=== PATIENT | male | born 1945 | race Caucasian/White ===

== ENCOUNTER 2018-11-18 09:30 | Inpatient (IN) | payer MEDICARE, OTHER ==
[2018-11-18 09:39] LABS: Glucose,Whole Blood 303 mg/dL (75-99)
[2018-11-18] MEDS ORDERED: SODIUM CHLORIDE 0.9% 1,000 ML IV ONE (10:17)
[2018-11-18] MEDS ORDERED: SODIUM CHLORIDE 0.9% 500 ML 500 ML IV ONE (10:17)
--- NOTE | 2018-11-18 10:31 | ED ---
General Adult HPI - General Chief complaint: Nausea/Vomiting/Diarrhea Stated complaint: HYPERGLYCEMIA, NAUSEA X 5 DAYS Time Seen by Provider: 11/18/18 09:40 Source: patient, RN notes reviewed Mode of arrival: wheelchair Limitations: no limitations - History of Present Illness Initial comments: This is a 73-year-old male who presents emergency department with past medical history significant for diabetes. Patient presents to the emergency department complaining of vomiting 5 days. Patient denies abdominal pain. Patient denies diarrhea. Patient denies any fever chills or cough. Patient denies headache. Patient denies numbness weakness. Patient denies any chest pain difficulty breathing or shortness of breath. Patient came in because he believes he is dehydrated. Patient is a poor historian. - Related Data Home Medications Medication Instructions Recorded Confirmed Insulin Glargine,Hum.rec.anlog 17 units SQ DAILY 11/18/18 11/18/18 [Toujeo Solostar] Insulin Glulisine [Apidra Solostar] 4 unit SQ AC-LUNCH 11/18/18 11/18/18 Insulin Glulisine [Apidra Solostar] 7 unit SQ AC-SUPPER 11/18/18 11/18/18 Insulin Glulisine [Apidra Solostar] See Protocol SQ AC-BRKFST 11/18/18 11/18/18 Allergies Allergy/AdvReac Type Severity Reaction Status Date / Time No Known Allergies Allergy Verified 11/18/18 09:51 Review of Systems ROS Statement: Those systems with pertinent positive or pertinent negative responses have been documented in the HPI. ROS Other: All systems not noted in ROS Statement are negative. Past Medical History Past Medical History: Diabetes Mellitus History of Any Multi-Drug Resistant Organisms: None Reported Past Surgical History: No Surgical Hx Reported, Cholecystectomy Additional Past Surgical History / Comment(s): hernia repair Past Psychological History: No Psychological Hx Reported Smoking Status: Never smoker Past Alcohol Use History: Rare Past Drug Use History: None Reported General Exam - General Exam Comments Initial Comments: GENERAL: Patient is well-developed and well-nourished. Patient is nontoxic and well- hydrated and is in mild distress ENT: Neck is soft and supple. No significant lymphadenopathy is noted. Oropharynx is clear. Dry mucous membranes. Neck has full range of motion without eliciting any pain. EYES: The sclera were anicteric and conjunctiva were pink and moist. Extraocular movements were intact and pupils were equal round and reactive to light. Eyelids were unremarkable. PULMONARY: Unlabored respirations. Good breath sounds bilaterally. No audible rales rhonchi or wheezing was noted. CARDIOVASCULAR: There is a regular rate and rhythm without any murmurs gallops or rubs. ABDOMEN: Soft and nontender with normal bowel sounds. No palpable organomegaly was noted. There is no palpable pulsatile mass. SKIN: Skin is clear with no lesions or rashes and otherwise unremarkable. NEUROLOGIC: Patient is alert and oriented x3. Cranial nerves II through XII are grossly intact. Motor and sensory are also intact. Normal speech, volume and content. Symmetrical smile. Cerebellar exam grossly intact. MUSCULOSKELETAL: Normal extremities with adequate strength and full range of motion. No lower extremity swelling or edema. No calf tenderness. LYMPHATICS: No significant lymphadenopathy is noted PSYCHIATRIC: Normal psychiatric evaluation. Limitations: no limitations Course Vital Signs 11/18/18 09:39 Temperature 98.4 F Pulse Rate 105 H Respiratory 18 Rate Blood Pressure 157/73 O2 Sat by Pulse 94 L Oximetry Medical Decision Making - Medical Decision Making I started the patient insulin drip. I talked with Dr. Vela he agreed to admit the patient admitted the patient I wr ote admitting orders. - Lab Data Result diagrams: 11/18/18 10:10 11/18/18 10:10 Lab Results 11/18/18 11/18/18 11/18/18 Range/Units 09:35 10:10 10:10 WBC 19.1 H (3.8-10.6) k/uL RBC 5.88 (4.30-5.90) m/uL Hgb 17.6 H (13.0-17.5) gm/dL Hct 53.0 (39.0-53.0) % MCV 90.2 (80.0-100.0) fL MCH 30.0 (25.0-35.0) pg MCHC 33.3 (31.0-37.0) g/dL RDW 13.0 (11.5-15.5) % Plt Count 263 (150-450) k/uL Neutrophils % 91 % Lymphocytes % 4 % Monocytes % 4 % Eosinophils % 0 % Basophils % 0 % Neutrophils # 17.5 H (1.3-7.7) k/uL Lymphocytes # 0.7 L (1.0-4.8) k/uL Monocytes # 0.8 (0-1.0) k/uL Eosinophils # 0.0 (0-0.7) k/uL Basophils # 0.0 (0-0.2) k/uL Sodium 148 H (137-145) mmol/L Potassium 4.6 (3.5-5.1) mmol/L Chloride 105 (98-107) mmol/L Carbon Dioxide 30 (22-30) mmol/L Anion Gap 13 mmol/L BUN 48 H (9-20) mg/dL Creatinine 1.15 (0.66-1.25) mg/dL Est GFR (CKD-EPI)AfAm 74 (>60 ml/min/1.73 sqM) Est GFR (CKD-EPI)NonAf 64 (>60 ml/min/1.73 sqM) Glucose 335 H (74-99) mg/dL POC Glucose (mg/dL) 303 H (75-99) mg/dL POC Glu Firearms Inspector ID Deisi Garza Calcium 10.4 H (8.4-10.2) mg/dL Total Bilirubin 1.2 (0.2-1.3) mg/dL AST 28 (17-59) U/L ALT 31 (21-72) U/L Alkaline Phosphatase 119 (38-126) U/L Total Protein 7.9 (6.3-8.2) g/dL Albumin 4.8 (3.5-5.0) g/dL Acetone, Qual Positive (Negative) Disposition Clinical Impression: DKA (diabetic ketoacidoses) Disposition: ADMITTED IP TO THIS HOSP Referrals: Floyd Armando MD [Primary Care Provider] - 1-2 days Time of Disposition: 12:09
--- NOTE | 2018-11-18 10:56 | XR ---
EXAMINATION TYPE: XR chest 2V DATE OF EXAM: 11/18/2018 COMPARISON: NONE HISTORY: Shortness of breath TECHNIQUE: Frontal and lateral views of the chest are obtained. FINDINGS: Scattered senescent parenchymal changes noted. Hyperinflation compatible with COPD. No evidence for infiltrate. No evidence for atelectasis. Heart size is stable. Mediastinal structures are stable and grossly unremarkable. No evidence for hilar prominence. Degenerative changes dorsal spine. IMPRESSION: 1. No evidence for acute pulmonary disease.
[2018-11-18 10:58] LABS: ALT 31 U/L (21-72); AST 28 U/L (17-59); African American GFR (CKD) 74 (>60 ml/min/1.73 sqM); Albumin 4.8 g/dL (3.5-5.0); Alkaline Phosphatase 119 U/L (38-126); Anion Gap 13 mmol/L; Blood Urea Nitrogen 48 mg/dL (9-20); Calcium 10.4 mg/dL (8.4-10.2); Carbon Dioxide 30 mmol/L (22-30); Chloride 105 mmol/L (98-107); Glucose 335 mg/dL (74-99); Potassium 4.6 mmol/L (3.5-5.1); Sodium 148 mmol/L (137-145); Total Bilirubin 1.2 mg/dL (0.2-1.3); Total Protein 7.9 g/dL (6.3-8.2)
[2018-11-18] MEDS ORDERED: ONDANSETRON 4 MG/2 ML VIAL IVP STA (11:02)
[2018-11-18 11:06] LABS: Basophils % (A) 0 %; Eosinophils % (A) 0 %; HGB 17.6 gm/dL (13.0-17.5); Lymphocytes # (A) 0.7 k/uL (1.0-4.8); Lymphocytes % (A) 4 %; MCHC 33.3 g/dL (31.0-37.0); MCV 90.2 fL (80.0-100.0); Mean Platelet Volume 7.4; Monocytes # (A) 0.8 k/uL (0-1.0); Monocytes % (A) 4 %; Neutrophils # (A) 17.5 k/uL (1.3-7.7); Neutrophils % (A) 91 %; Platelet Count 263 k/uL (150-450); RBC 5.88 m/uL (4.30-5.90); WBC 19.1 k/uL (3.8-10.6)
[2018-11-18 12:26] LABS: Glucose,Whole Blood 269 mg/dL (75-99)
[2018-11-18 12:33] LABS: Appearance,Urine Clear (Clear); Bilirubin,Urine Negative (Negative); Blood,Urine Negative (Negative); Color,Urine Yellow; Glucose,Urine (UA) 4+ (Negative); Ketones,Urine 1+ (Negative); Leukocyte Esterase,Urine Negative (Negative); Nitrite,Urine Negative (Negative); PH, Urine 5.5 (5.0-8.0); Protein,Urine Negative (Negative); Specific Gravity,Urine 1.017 (1.001-1.035); Urobilinogen,Urine <2.0 mg/dL (<2.0)
[2018-11-18] MEDS: SODIUM CHLORIDE 0.9% 1,000 ML IV SCH ×2 (12:59→19:29)
[2018-11-18] MEDS: INSULIN REGULAR 100 UNIT in SODIUM CHLORIDE 0.9% 100 ML IV SCH (12:59)
[2018-11-18 13:33] LABS: Glucose,Whole Blood 197 mg/dL (75-99)
[2018-11-18 14:09] LABS: Glucose,Whole Blood 168 mg/dL (75-99)
[2018-11-18] MEDS: D5-0.45% NACL WITH KCL 20MEQ/L 1,000 ML IV SCH ×2 (14:18→22:50)
[2018-11-18 15:10] LABS: Glucose,Whole Blood 135 mg/dL (75-99)
[2018-11-18 16:12] LABS: Glucose,Whole Blood 109 mg/dL (75-99)
[2018-11-18 16:22] LABS: African American GFR (CKD) >90 (>60 ml/min/1.73 sqM); Anion Gap 10 mmol/L; Blood Urea Nitrogen 38 mg/dL (9-20); Carbon Dioxide 31 mmol/L (22-30); Chloride 110 mmol/L (98-107); Glucose 115 mg/dL (74-99); Phosphorus 2.2 mg/dL (2.5-4.5); Potassium 4.2 mmol/L (3.5-5.1); Sodium 151 mmol/L (137-145)
[2018-11-18 16:43] LABS: Glucose,Whole Blood 96 mg/dL (75-99)
[2018-11-18] MEDS: ONDANSETRON 4 MG/2 ML VIAL IVP PRN (17:04)
[2018-11-18 18:01] LABS: Glucose,Whole Blood 116 mg/dL (75-99)
[2018-11-18] MEDS: METOCLOPRAMIDE 5 MG/ML 2 ML VIAL IVP PRN (18:31)
--- NOTE | 2018-11-18 19:20 | P.CNNES ---
History of Present Illness Consult date: 11/18/18 Requesting physician: Umu Vela Reason for Consult: AMS Chief complaint: "I have been vomiting" History of Present Illness: This is a 73 LH male h/o DMII who presents to the ER with 5 days of emesis. He was found to have elevated BS and sodium. Together with elevated BUN, he was diagnosed with dehydration. There was also mentioning of possible DKA as his initial BS was 335. He was started on an insulin gtt and IVF. He still feels nauseated, but does not have any active neuro c/o. Family believes he is not as alert as usual and requests a formal neurological consultation. Review of Systems 14-point ROS performed and as per HPI. Neurologically, patient denies decreased level or loss of consciousness, seizure, changes in vision, diplopia, amaurosis, changes in hearing, facial droop, ptosis, vertigo, hearing loss, tinnitus, dysarthria, dysphagia, aphasia, other focal numbness/weakness not mentioned above, tremors, bowel/bladder incontinence or ataxia. Past Medical History Past Medical History: Diabetes Mellitus, Osteoarthritis (OA) Additional Past Medical History / Comment(s): IDDM type II, arthritis in multiple joints, spinal stenosis, cervical and back pain, History of Any Multi-Drug Resistant Organisms: None Reported Past Surgical History: Cholecystectomy, Hernia Repair Additional Past Surgical History / Comment(s): R inguinal hernia repair, colonoscopies, bilateral cataract removals/lens implants. Past Anesthesia/Blood Transfusion Reactions: No Reported Reaction Smoking Status: Former smoker - Past Family History Father Family Medical History: Coronary Artery Disease (CAD) Additional Family Medical History / Comment(s): Father had 3 vessel CABG Mother Family Medical History: Dementia Additional Family Medical History / Comment(s): Mother had TB Brother(s) Additional Family Medical History / Comment(s): Brother had TB Medications and Allergies Home Medications Medication Instructions Recorded Confirmed Type Insulin Glargine,Hum.rec.anlog 17 units SQ DAILY 11/18/18 11/18/18 History [Toujeo Solostar] Insulin Glulisine [Apidra Solostar] 4 unit SQ AC-LUNCH 11/18/18 11/18/18 History Insulin Glulisine [Apidra Solostar] 7 unit SQ AC-SUPPER 11/18/18 11/18/18 History Insulin Glulisine [Apidra Solostar] See Protocol SQ AC-BRKFST 11/18/18 11/18/18 History Allergies Allergy/AdvReac Type Severity Reaction Status Date / Time No Known Allergies Allergy Verified 11/18/18 09:51 Physical Examination - Vital Signs Vital Signs: Vital Signs Temp Pulse Pulse Resp BP BP Pulse Ox 11/18/18 16:22 139/82 11/18/18 16:20 139/82 11/18/18 16:00 97.8 F 78 16 145/78 98 11/18/18 09:39 98.4 F 105 H 18 157/73 94 L Intake and Output 11/18/18 11/18/18 11/18/18 06:59 14:59 22:59 Intake Total 3.894 138.153 Balance 3.894 138.153 Intake: Intake, IV Titration 3.894 18.153 Amount Insulin Regular 100 unit 3.894 18.153 In Sodium Chloride 0.9% 100 ml @ 0.1 UNITS/KG/HR 6.872 mls/hr IV .[id number] [facility] Rx#:[id number] Oral 120 Other: Weight 68.039 kg Gen NAD Pleasant and cooperative HEENT NCAT Sclera without icterus O/P clear Neck Supple No carotid bruit Cor RRR no m/r/g Lungs CTAB Abd Soft NTND +BS Ext Warm to touch No edema Neuro MS A+Ox4 Normal fluency with mild semantic paraphasia Able to follow all 3-step command that crosses midline Knows 11/18/2018 President Margarita Immediate recall 3/3 Short-term recall 2/3 improves to 3/3 with prompting WORLD backwards 2/5 APPLE backwards 5/5 Cannot subtract Level of education 12th grade CN PERRL VFF no APD EOMI no nystagmus or DELFIN No facial asymmetry [place]'s symmetric Hearing intact to normal voice bilaterally Speech not dysarthric Equal elevation of palate Tongue midline Sym shrug and SCM bilaterally Motor Normal bulk/tone No pronator or tremors Strength 5/5 sym throughout Sens Intact to LT x4 No neglect Coord No dysmetria on FTN bilaterally DTRs 2+/4 sym throughout Toes downgoing bilaterally No clonus at achilles Gait Deferred Results - Laboratory Findings CBC and BMP: 11/18/18 10:10 11/18/18 15:55 Abnormal Lab Findings: Abnormal Labs 11/18/18 11/18/18 11/18/18 09:35 10:10 10:10 WBC 19.1 H Hgb 17.6 H Neutrophils # 17.5 H Lymphocytes # 0.7 L Sodium 148 H Chloride Carbon Dioxide BUN 48 H Glucose 335 H POC Glucose (mg/dL) 303 H Calcium 10.4 H Phosphorus Urine Glucose (UA) Urine Ketones 11/18/18 11/18/18 11/18/18 12:00 12:21 13:30 WBC Hgb Neutrophils # Lymphocytes # Sodium Chloride Carbon Dioxide BUN Glucose POC Glucose (mg/dL) 269 H 197 H Calcium Phosphorus Urine Glucose (UA) 4+ H Urine Ketones 1+ H 11/18/18 11/18/18 11/18/18 14:08 15:08 15:55 WBC Hgb Neutrophils # Lymphocytes # Sodium 151 H Chloride 110 H Carbon Dioxide 31 H BUN 38 H Glucose 115 H POC Glucose (mg/dL) 168 H 135 H Calcium Phosphorus 2.2 L Urine Glucose (UA) Urine Ketones 11/18/18 11/18/18 16:02 17:59 WBC Hgb Neutrophils # Lymphocytes # Sodium Chloride Carbon Dioxide BUN Glucose POC Glucose (mg/dL) 109 H 116 H Calcium Phosphorus Urine Glucose (UA) Urine Ketones Assessment and Plan Assessment: AMS in the setting hyperglycemia and hypernatremia/dehydration consistent with metabolic encephalopathy less likely new acute intracranial structural changes such as CVA Plan: -Medical management as you are doing with insulin gtt and rehydration. -MRI Brain wo valerie r/o CVA, though likely low-yield. 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 Will not order EEG or LP. -Send ionized calcium, magnesium, phosphorus, TSH and B12. -d/w patient and family. All questions answered. Thank you for this consultation. Please call with ?. Time with Patient: Greater than 30 (Time spent in direct patient care, greater than 50% of which was spent in [id number] counseling and coordination of care: 70 minutes.)
[2018-11-18 20:15] LABS: Glucose,Whole Blood 151 mg/dL (75-99)
[2018-11-18 20:29] LABS: Ionized Calcium 5.1 mg/dL (4.5-5.3)
[2018-11-18 20:33] LABS: Basophils # (A) 0.1 k/uL (0-0.2); Basophils % (A) 0 %; Eosinophils # (A) 0.1 k/uL (0-0.7); Eosinophils % (A) 0 %; HCT 47.9 % (39.0-53.0); HGB 15.6 gm/dL (13.0-17.5); Lymphocytes # (A) 1.2 k/uL (1.0-4.8); Lymphocytes % (A) 5 %; MCH 29.1 pg (25.0-35.0); MCHC 32.6 g/dL (31.0-37.0); MCV 89.3 fL (80.0-100.0); Mean Platelet Volume 8.3; Monocytes # (A) 1.3 k/uL (0-1.0); Monocytes % (A) 6 %; Neutrophils % (A) 87 %; Platelet Count 228 k/uL (150-450); RBC 5.36 m/uL (4.30-5.90); WBC 21.9 k/uL (3.8-10.6)
[2018-11-18 20:39] LABS: ALT 27 U/L (21-72); AST 30 U/L (17-59); African American GFR (CKD) >90 (>60 ml/min/1.73 sqM); Alkaline Phosphatase 109 U/L (38-126); Anion Gap 8 mmol/L; Blood Urea Nitrogen 32 mg/dL (9-20); Calcium 9.4 mg/dL (8.4-10.2); Carbon Dioxide 29 mmol/L (22-30); Chloride 110 mmol/L (98-107); Glucose 163 mg/dL (74-99); Magnesium 2.1 mg/dL (1.6-2.3); Phosphorus 2.6 mg/dL (2.5-4.5); Sodium 147 mmol/L (137-145); Total Bilirubin 1.7 mg/dL (0.2-1.3); Total Protein 6.8 g/dL (6.3-8.2)
[2018-11-18 21:11] LABS: Glucose,Whole Blood 141 mg/dL (75-99)
--- NOTE | 2018-11-18 21:35 | P.HPIM ---
History of Present Illness H&P Date: 11/18/18 Chief Complaint: Diabetic ketoacidosis, hypernatremia. This is a 73-year-old male one of Dr. Armando with a previous medical history significant for diabetes mellitus type 1 insulin requiring, history of diabetic polyneuropathy, psoriasis, history of spondylosis of the cervical spine, patient presented to the emergency department at [facility] today after 4 day history of increased abdominal pain associated with nausea and vomiting and not able to keep anything down, patient to the was found to have an elevated blood glucose level with hypernatremia and he was quite dehydrated he was started on insulin drip as well as IV fluid resuscitation was admitted to the hospital for evaluation, patient was seen in consultation by neurology for evaluation of mental status changes and encephalopathy that got better with IV hydration and IV insulin and he was recommended for the patient to go for MRI of the brain with and without gadolinium despite the low probability of CVA. Patient will have abdominal x-ray to rule out any ileus. Review of Systems Constitutional: Denies anorexia, Denies chronic headaches, Denies lethargy, Denies weakness Eyes: bilateral blurred vision, denies bulging eye, denies decreased vision Ears: bilateral: decreased hearing Ears, nose, mouth and throat: Denies dysphagia, Denies neck lump, Denies swelling in throat, Denies sore throat Cardiovascular: Denies chest pain, Denies decreased exercise tolerance, Denies dyspnea on exertion, Denies lightheadedness, Denies rapid heart beat, Denies shortness of breath, Denies syncope Respiratory: Denies congestion, Denies cough with sputum, Denies hemoptysis, Denies home oxygen, Denies sleep apnea, Denies snoring, Denies wheezing Gastrointestinal: Reports indigestion, Reports nausea, Reports vomiting, Denies abdominal pain, Denies bloating, Denies heartburn, Denies hematemesis, Denies hematochezia, Denies loss of appetite Genitourinary: Reports nocturia, Denies dysuria Musculoskeletal: Reports low back pain Musculoskeletal: absent: ankle pain, ankle stiffness, ankle swelling, elbow pain, elbow stiffness, elbow swelling, foot pain, foot stiffness, foot swelling, hand pain, hand stiffness, hand swelling, hip pain, hip stiffness, hip swelling, knee pain, knee stiffness, knee swelling, shoulder pain, shoulder stiffness, shoulder swelling, wrist pain, wrist stiffness, wrist swelling Integumentary: Reports rash (Psoriatic plaque in a scattered areas), Denies pruritus Neurological: Reports confusion Psychiatric: Denies anxiety, Denies depression Endocrine: Denies fatigue, Denies weight change Past Medical History Past Medical History: COPD, Diabetes Mellitus, Musculoskeletal Disorder, Osteoarthritis (OA), Prostate Disorder Additional Past Medical History / Comment(s): IDDM type II, arthritis in multiple joints, spinal stenosis, cervical and back pain, History of Any Multi-Drug Resistant Organisms: None Reported Past Surgical History: Cholecystectomy, Hernia Repair Additional Past Surgical History / Comment(s): R inguinal hernia repair, colonoscopies, bilateral cataract removals/lens implants. Past Anesthesia/Blood Transfusion Reactions: No Reported Reaction Smoking Status: Former smoker (Patient used to smoke about 2 pack every day smoked for many years and quit about 1999) Past Alcohol Use History: Occasional Past Drug Use History: None Reported - Past Family History Father Family Medical History: Coronary Artery Disease (CAD) (Father had 3 vessel coronary artery disease and he at age 67 with back surgery.) Additional Family Medical History / Comment(s): Father had 3 vessel CABG Mother Family Medical History: Dementia (Mother at age of 83 from tuberculosis.) Additional Family Medical History / Comment(s): Mother had TB Brother(s) Family Medical History: No Reported History (Patient has 2 brothers one of them with tuberculosis.) Additional Family Medical History / Comment(s): Brother had TB Sister(s) Family Medical History: No Reported History (Patient has 2 sisters no major medical problems.) Daughter(s) Family Medical History: No Reported History (Patient has 2 daughters no major medical problems.) Son(s) Family Medical History: No Reported History (Patient has 2 sons no major medical problems.) Medications and Allergies Home Medications Medication Instructions Recorded Confirmed Type Insulin Glargine,Hum.rec.anlog 17 units SQ DAILY 11/18/18 11/18/18 History [Toujosi Cruzostjay jay] Insulin Glulisine [Apidra Solostar] 4 unit SQ AC-LUNCH 11/18/18 11/18/18 History Insulin Glulisine [Apidra Solostar] 7 unit SQ AC-SUPPER 11/18/18 11/18/18 History Insulin Glulisine [Apidra Solostar] See Protocol SQ AC-BRKFST 11/18/18 11/18/18 History Allergies Allergy/AdvReac Type Severity Reaction Status Date / Time No Known Allergies Allergy Verified 11/18/18 09:51 Physical Exam Vitals: Vital Signs Temp Pulse Pulse Resp BP BP Pulse Ox 11/18/18 16:22 139/82 11/18/18 16:20 139/82 11/18/18 16:00 97.8 F 78 16 145/78 98 11/18/18 09:39 98.4 F 105 H 18 157/73 94 L Intake and Output 11/18/18 11/18/18 11/18/18 06:59 14:59 22:59 Intake Total 3.894 138.153 Balance 3.894 138.153 Intake: Intake, IV Titration 3.894 18.153 Amount Insulin Regular 100 unit 3.894 18.153 In Sodium Chloride 0.9% 100 ml @ 0.1 UNITS/KG/HR 6.872 mls/hr IV .[id number] [facility] Rx#:[id number] Oral 120 Other: Weight 68.039 kg - Constitutional General appearance: average body habitus, no acute distress - EENT Eyes: anicteric sclerae, EOMI, PERRLA, no ptosis, no scleral icterus, normal appearance ENT: NA/AT, normal oropharynx, no thrush Ears: bilateral: normal - Neck Neck: no lymphadenopathy, normal ROM, no rigidity, no stridor, no thyromegaly Carotids: bilateral: upstroke normal Thyroid: bilateral: normal size - Respiratory Respiratory: bilateral: diminished, negative: dullness, rales, rhonchi, wheezing, prolonged expiration, prolonged inspiration - Cardiovascular Rhythm: regular Heart sounds: normal: S1, S2 Abnormal Heart Sounds: no systolic murmur, no S3 Gallop, no S4 Gallop - Gastrointestinal General gastrointestinal: normal bowel sounds, soft, no splenomegaly, no tenderness, no umbilical hernia, no ventral hernia - Integumentary Integumentary: decreased turgor - Neurologic Neurologic: CNII-XII intact - Musculoskeletal Musculoskeletal: gait normal, generalized weakness, strength equal bilaterally - Psychiatric Psychiatric: A&O x's 3, appropriate affect, intact judgment & insight Results CBC & Chem 7: 11/18/18 19:45 11/18/18 19:45 Labs: Abnormal Lab Results - Last 24 Hours (Table) 11/18/18 11/18/18 11/18/18 Range/Units 09:35 10:10 10:10 WBC 19.1 H (3.8-10.6) k/uL Hgb 17.6 H (13.0-17.5) gm/dL Neutrophils # 17.5 H (1.3-7.7) k/uL Lymphocytes # 0.7 L (1.0-4.8) k/uL Sodium 148 H (137-145) mmol/L Chloride (98-107) mmol/L Carbon Dioxide (22-30) mmol/L BUN 48 H (9-20) mg/dL Glucose 335 H (74-99) mg/dL POC Glucose (mg/dL) 303 H (75-99) mg/dL Calcium 10.4 H (8.4-10.2) mg/dL Phosphorus (2.5-4.5) mg/dL Urine Glucose (UA) (Negative) Urine Ketones (Negative) 11/18/18 11/18/18 11/18/18 Range/Units 12:00 12:21 13:30 WBC (3.8-10.6) k/uL Hgb (13.0-17.5) gm/dL Neutrophils # (1.3-7.7) k/uL Lymphocytes # (1.0-4.8) k/uL Sodium (137-145) mmol/L Chloride (98-107) mmol/L Carbon Dioxide (22-30) mmol/L BUN (9-20) mg/dL Glucose (74-99) mg/dL POC Glucose (mg/dL) 269 H 197 H (75-99) mg/dL Calcium (8.4-10.2) mg/dL Phosphorus (2.5-4.5) mg/dL Urine Glucose (UA) 4+ H (Negative) Urine Ketones 1+ H (Negative) 11/18/18 11/18/18 11/18/18 Range/Units 14:08 15:08 15:55 WBC (3.8-10.6) k/uL Hgb (13.0-17.5) gm/dL Neutrophils # (1.3-7.7) k/uL Lymphocytes # (1.0-4.8) k/uL Sodium 151 H (137-145) mmol/L Chloride 110 H (98-107) mmol/L Carbon Dioxide 31 H (22-30) mmol/L BUN 38 H (9-20) mg/dL Glucose 115 H (74-99) mg/dL POC Glucose (mg/dL) 168 H 135 H (75-99) mg/dL Calcium (8.4-10.2) mg/dL Phosphorus 2.2 L (2.5-4.5) mg/dL Urine Glucose (UA) (Negative) Urine Ketones (Negative) 11/18/18 11/18/18 Range/Units 16:02 17:59 WBC (3.8-10.6) k/uL Hgb (13.0-17.5) gm/dL Neutrophils # (1.3-7.7) k/uL Lymphocytes # (1.0-4.8) k/uL Sodium (137-145) mmol/L Chloride (98-107) mmol/L Carbon Dioxide (22-30) mmol/L BUN (9-20) mg/dL Glucose (74-99) mg/dL POC Glucose (mg/dL) 109 H 116 H (75-99) mg/dL Calcium (8.4-10.2) mg/dL Phosphorus (2.5-4.5) mg/dL Urine Glucose (UA) (Negative) Urine Ketones (Negative) Thrombosis Risk Factor Assmnt - DVT/VTE Prophylaxis DVT/VTE Prophylaxis: Pharmacologic Prophylaxis ordered, Mechanical Prophylaxis ordered - Choose All That Apply Any of the Below Risk Factors Present?: Yes Each Factor Represents 1 point: Obesity (BMI >25) Other Risk Factors: Yes Each Risk Factor Represents 2 Points: Age 61-74 years Other congenital or acquired thrombophilia - If yes, enter type in comment: No Thrombosis Risk Factor Assessment Total Risk Factor Score: 3 Thrombosis Risk Factor Assessment Level: Moderate Risk Assessment and Plan Assessment: Assessment and plan: 1. Diabetic ketoacidosis. He shouldn't will continue IV fluid as well as IV insulin drip, monitor the patient blood glucose every hour, keep the patient on insulin drip overnight, continue patient Zofran 4 mg IV push every 6 hours as well as Reglan 5 mg IV push every 6 hours. Monitor CMP every 6 hours. 2. Intractable nausea and vomiting impart due to DKA however abdominal x-rays 2 views will be obtained as it was not done in the ER. 3. Leukocytosis of unclear etiology. Abdominal x-ray, repeat CBC the next 24 hours. Continue IV fluid resuscitation, continue insulin drip, monitor the patient very closely. 4. Diabetes mellitus type 2 insulin requiring. Continue on insulin drip overnight transition into [place] and Apidra with the patient is able to tolerate his diet. 5. Psoriasis. Stable. 6. 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 Stable. 7. Anion gap metabolic acidosis due to DKA. Continue IV fluid and IV insulin drip. Repeat CMP next 24 hours. 8. DVT prophylaxis. Heparin 5000 units subcutaneously every 8 hours. 9. GI prophylaxis. Protonix 40 mg push every 24 hours. 10. Admitted to inpatient. Estimate length of stay 2 midnights. 11. Patient is full code.
--- NOTE | 2018-11-18 22:05 | XR ---
EXAMINATION TYPE: XR abdomen 3V DATE OF EXAM: 11/18/2018 COMPARISON: NONE HISTORY: Vomiting, pain, nausea TECHNIQUE: Upright abdomen and supine abdomen and supine pelvis FINDINGS: Visualized lung bases and pleural spaces are negative. The bowel gas pattern is normal. No abnormal gas collections. No acute skeletal or soft tissue findings are evident. IMPRESSION: No acute radiographic process.
[2018-11-18 22:37] LABS: Glucose,Whole Blood 154 mg/dL (75-99)
[2018-11-18] MEDS: HEPARIN SODIUM,PORCINE 5,000 UNIT/ML 1 ML VIAL SQ SCH (22:50)
[2018-11-19 03:47] LABS: Glucose,Whole Blood 218 mg/dL (75-99)
[2018-11-19 03:47] LABS: Glucose,Whole Blood 183 mg/dL (75-99)
[2018-11-19 03:47] LABS: Glucose,Whole Blood 187 mg/dL (75-99)
[2018-11-19 03:47] LABS: Glucose,Whole Blood 226 mg/dL (75-99)
[2018-11-19 03:47] LABS: Glucose,Whole Blood 189 mg/dL (75-99)
[2018-11-19 04:13] LABS: Glucose,Whole Blood 244 mg/dL (75-99)
[2018-11-19 04:43] LABS: Basophils % (A) 0 %; Eosinophils # (A) 0.1 k/uL (0-0.7); Eosinophils % (A) 0 %; HCT 45.8 % (39.0-53.0); HGB 15.1 gm/dL (13.0-17.5); Lymphocytes # (A) 1.4 k/uL (1.0-4.8); Lymphocytes % (A) 7 %; MCH 29.7 pg (25.0-35.0); MCHC 32.9 g/dL (31.0-37.0); MCV 90.2 fL (80.0-100.0); Mean Platelet Volume 7.9; Monocytes # (A) 1.1 k/uL (0-1.0); Monocytes % (A) 6 %; Neutrophils # (A) 17.2 k/uL (1.3-7.7); Neutrophils % (A) 86 %; Platelet Count 228 k/uL (150-450); RBC 5.08 m/uL (4.30-5.90); WBC 20.1 k/uL (3.8-10.6)
[2018-11-19 04:45] LABS: African American GFR (CKD) >90 (>60 ml/min/1.73 sqM); Anion Gap 6 mmol/L; Blood Urea Nitrogen 27 mg/dL (9-20); Carbon Dioxide 29 mmol/L (22-30); Chloride 111 mmol/L (98-107); Glucose 205 mg/dL (74-99); Sodium 146 mmol/L (137-145)
[2018-11-19 05:16] LABS: Glucose,Whole Blood 238 mg/dL (75-99)
[2018-11-19 06:06] LABS: Glucose,Whole Blood 245 mg/dL (75-99)
[2018-11-19] MEDS: D5-0.45% NACL WITH KCL 20MEQ/L 1,000 ML IV SCH ×2 (06:30→10:54)
[2018-11-19] MEDS: INSULIN REGULAR 100 UNIT in SODIUM CHLORIDE 0.9% 100 ML IV SCH (06:31)
[2018-11-19 07:14] LABS: Glucose,Whole Blood 278 mg/dL (75-99)
[2018-11-19 08:00] LABS: Basophils % (A) 0 %; Eosinophils # (A) 0.1 k/uL (0-0.7); Eosinophils % (A) 0 %; HCT 48.5 % (39.0-53.0); HGB 16.1 gm/dL (13.0-17.5); Lymphocytes % (A) 7 %; MCH 30.1 pg (25.0-35.0); MCHC 33.2 g/dL (31.0-37.0); MCV 90.4 fL (80.0-100.0); Monocytes # (A) 0.9 k/uL (0-1.0); Monocytes % (A) 6 %; Neutrophils # (A) 13.3 k/uL (1.3-7.7); Neutrophils % (A) 86 %; Platelet Count 207 k/uL (150-450); RBC 5.36 m/uL (4.30-5.90); RDW 14.3 % (11.5-15.5); WBC 15.5 k/uL (3.8-10.6)
[2018-11-19 08:05] LABS: ALT 38 U/L (21-72); AST 35 U/L (17-59); African American GFR (CKD) >90 (>60 ml/min/1.73 sqM); Alkaline Phosphatase 108 U/L (38-126); Anion Gap 11 mmol/L; Blood Urea Nitrogen 19 mg/dL (9-20); Calcium 9.4 mg/dL (8.4-10.2); Carbon Dioxide 28 mmol/L (22-30); Chloride 106 mmol/L (98-107); Glucose 271 mg/dL (74-99); Potassium 3.8 mmol/L (3.5-5.1); Sodium 145 mmol/L (137-145); Total Bilirubin 1.7 mg/dL (0.2-1.3); Total Protein 6.8 g/dL (6.3-8.2)
[2018-11-19 08:05] LABS: Glucose,Whole Blood 242 mg/dL (75-99)
[2018-11-19 09:10] LABS: Glucose,Whole Blood 239 mg/dL (75-99)
[2018-11-19] MEDS ORDERED: INSULIN DETEMIR (LEVEMIR) 100 UNIT/ML SYR SQ SCH (09:30)
--- NOTE | 2018-11-19 09:32 | P.PN ---
Subjective Progress Note Date: 11/19/18 Principal diagnosis: AMS due to metabolic encephalopathy N/V and mentation have improved. No new neuro c/o. Objective - Vital Signs Vital signs: Vital Signs Temp 99.1 F 11/19/18 08:00 Pulse 78 11/19/18 08:00 Resp 16 11/19/18 08:00 BP 160/94 11/19/18 08:00 Pulse Ox 96 11/19/18 08:00 Intake & Output 11/18/18 11/19/18 11/19/18 18:59 06:59 18:59 Intake Total 142.047 755.841 240 Balance 142.047 755.841 240 Weight 68.039 kg 63.1 kg Intake: Intake, IV Titration 22.047 755.841 Amount D5-0.45% NaCl with KCl 750 20Meq/l 1,000 ml @ 150 mls/hr IV .[id number] [facility] Rx# :[id number] Insulin Regular 100 unit 22.047 5.841 In Sodium Chloride 0.9% 100 ml @ 0.1 UNITS/KG/HR 6.872 mls/hr IV .[id number] [facility] Rx#:[id number] Oral 120 240 Other: Voiding Method Urinal # Voids 1 - Exam Gen NAD Pleasant and cooperative MS A+Ox4 Normal speech CN II-XII grossly intact no nystagmus Motor Normal bulk/tone No tremors GARCIA x4 Sens Intact to LT x4 Coord Not tested DTRs tr throughout Gait Deferred - Labs CBC & Chem 7: 11/19/18 07:23 11/19/18 07:23 Labs: Abnormal Lab Results - Last 24 Hours (Table) 11/18/18 11/18/18 11/18/18 Range/Units 09:35 10:10 10:10 WBC 19.1 H (3.8-10.6) k/uL Hgb 17.6 H (13.0-17.5) gm/dL Neutrophils # 17.5 H (1.3-7.7) k/uL Lymphocytes # 0.7 L (1.0-4.8) k/uL Monocytes # (0-1.0) k/uL Sodium 148 H (137-145) mmol/L Chloride (98-107) mmol/L Carbon Dioxide (22-30) mmol/L BUN 48 H (9-20) mg/dL Glucose 335 H (74-99) mg/dL POC Glucose (mg/dL) 303 H (75-99) mg/dL Calcium 10.4 H (8.4-10.2) mg/dL Phosphorus (2.5-4.5) mg/dL Total Bilirubin (0.2-1.3) mg/dL Lipase (23-300) U/L Urine Glucose (UA) (Negative) Urine Ketones (Negative) 11/18/18 11/18/18 11/18/18 Range/Units 12:00 12:21 13:30 WBC (3.8-10.6) k/uL Hgb (13.0-17.5) gm/dL Neutrophils # (1.3-7.7) k/uL Lymphocytes # (1.0-4.8) k/uL Monocytes # (0-1.0) k/uL Sodium (137-145) mmol/L Chloride (98-107) mmol/L Carbon Dioxide (22-30) mmol/L BUN (9-20) mg/dL Glucose (74-99) mg/dL POC Glucose (mg/dL) 269 H 197 H (75-99) mg/dL Calcium (8.4-10.2) mg/dL Phosphorus (2.5-4.5) mg/dL Total Bilirubin (0.2-1.3) mg/dL Lipase (23-300) U/L Urine Glucose (UA) 4+ H (Negative) Urine Ketones 1+ H (Negative) 11/18/18 11/18/18 11/18/18 Range/Units 14:08 15:08 15:55 WBC (3.8-10.6) k/uL Hgb (13.0-17.5) gm/dL Neutrophils # (1.3-7.7) k/uL Lymphocytes # (1.0-4.8) k/uL Monocytes # (0-1.0) k/uL Sodium 151 H (137-145) mmol/L Chloride 110 H (98-107) mmol/L Carbon Dioxide 31 H (22-30) mmol/L BUN 38 H (9-20) mg/dL Glucose 115 H (74-99) mg/dL POC Glucose (mg/dL) 168 H 135 H (75-99) mg/dL Calcium (8.4-10.2) mg/dL Phosphorus 2.2 L (2.5-4.5) mg/dL Total Bilirubin (0.2-1.3) mg/dL Lipase (23-300) U/L Urine Glucose (UA) (Negative) Urine Ketones (Negative) 11/18/18 11/18/18 11/18/18 Range/Units 16:02 17:59 19:45 WBC (3.8-10.6) k/uL Hgb (13.0-17.5) gm/dL Neutrophils # (1.3-7.7) k/uL Lymphocytes # (1.0-4.8) k/uL Monocytes # (0-1.0) k/uL Sodium 147 H (137-145) mmol/L Chloride 110 H (98-107) mmol/L Carbon Dioxide (22-30) mmol/L BUN 32 H (9-20) mg/dL Glucose 163 H (74-99) mg/dL POC Glucose (mg/dL) 109 H 116 H (75-99) mg/dL Calcium (8.4-10.2) mg/dL Phosphorus (2.5-4.5) mg/dL Total Bilirubin 1.7 H (0.2-1.3) mg/dL Lipase (23-300) U/L Urine Glucose (UA) (Negative) Urine Ketones (Negative) 11/18/18 11/18/18 11/18/18 Range/Units 19:45 20:14 21:09 WBC 21.9 H (3.8-10.6) k/uL Hgb (13.0-17.5) gm/dL Neutrophils # 19.0 H (1.3-7.7) k/uL Lymphocytes # (1.0-4.8) k/uL Monocytes # 1.3 H (0-1.0) k/uL Sodium (137-145) mmol/L Chloride (98-107) mmol/L Carbon Dioxide (22-30) mmol/L BUN (9-20) mg/dL Glucose (74-99) mg/dL POC Glucose (mg/dL) 151 H 141 H (75-99) mg/dL Calcium (8.4-10.2) mg/dL Phosphorus (2.5-4.5) mg/dL Total Bilirubin (0.2-1.3) mg/dL Lipase (23-300) U/L Urine Glucose (UA) (Negative) Urine Ketones (Negative) 11/18/18 11/18/18 11/19/18 Range/Units 22:05 22:55 00:00 WBC 20.1 H (3.8-10.6) k/uL Hgb (13.0-17.5) gm/dL Neutrophils # 17.2 H (1.3-7.7) k/uL Lymphocytes # (1.0-4.8) k/uL Monocytes # 1.1 H (0-1.0) k/uL Sodium (137-145) mmol/L Chloride (98-107) mmol/L Carbon Dioxide (22-30) mmol/L BUN (9-20) mg/dL Glucose (74-99) mg/dL POC Glucose (mg/dL) 154 H 183 H (75-99) mg/dL Calcium (8.4-10.2) mg/dL Phosphorus (2.5-4.5) mg/dL Total Bilirubin (0.2-1.3) mg/dL Lipase (23-300) U/L Urine Glucose (UA) (Negative) Urine Ketones (Negative) 11/19/18 11/19/18 11/19/18 Range/Units 00:00 00:10 01:12 WBC (3.8-10.6) k/uL Hgb (13.0-17.5) gm/dL Neutrophils # (1.3-7.7) k/uL Lymphocytes # (1.0-4.8) k/uL Monocytes # (0-1.0) k/uL Sodium 146 H (137-145) mmol/L Chloride 111 H (98-107) mmol/L Carbon Dioxide (22-30) mmol/L BUN 27 H (9-20) mg/dL Glucose 205 H (74-99) mg/dL POC Glucose (mg/dL) 187 H 218 H (75-99) mg/dL Calcium (8.4-10.2) mg/dL Phosphorus (2.5-4.5) mg/dL Total Bilirubin (0.2-1.3) mg/dL Lipase (23-300) U/L Urine Glucose (UA) (Negative) Urine Ketones (Negative) 11/19/18 11/19/18 11/19/18 Range/Units 02:10 03:04 04:11 WBC (3.8-10.6) k/uL Hgb (13.0-17.5) gm/dL Neutrophils # (1.3-7.7) k/uL Lymphocytes # (1.0-4.8) k/uL Monocytes # (0-1.0) k/uL Sodium (137-145) mmol/L Chloride (98-107) mmol/L Carbon Dioxide (22-30) mmol/L BUN (9-20) mg/dL Glucose (74-99) mg/dL POC Glucose (mg/dL) 189 H 226 H 244 H (75-99) mg/dL Calcium (8.4-10.2) mg/dL Phosphorus (2.5-4.5) mg/dL Total Bilirubin (0.2-1.3) mg/dL Lipase (23-300) U/L Urine Glucose (UA) (Negative) Urine Ketones (Negative) 11/19/18 11/19/18 11/19/18 Range/Units 05:15 06:05 07:12 WBC (3.8-10.6) k/uL Hgb (13.0-17.5) gm/dL Neutrophils # (1.3-7.7) k/uL Lymphocytes # (1.0-4.8) k/uL Monocytes # (0-1.0) k/uL Sodium (137-145) mmol/L Chloride (98-107) mmol/L Carbon Dioxide (22-30) mmol/L BUN (9-20) mg/dL Glucose (74-99) mg/dL POC Glucose (mg/dL) 238 H 245 H 278 H (75-99) mg/dL Calcium (8.4-10.2) mg/dL Phosphorus (2.5-4.5) mg/dL Total Bilirubin (0.2-1.3) mg/dL Lipase (23-300) U/L Urine Glucose (UA) (Negative) Urine Ketones (Negative) 11/19/18 11/19/18 11/19/18 Range/Units 07:23 07:23 07:23 WBC 15.5 H (3.8-10.6) k/uL Hgb (13.0-17.5) gm/dL Neutrophils # 13.3 H (1.3-7.7) k/uL Lymphocytes # (1.0-4.8) k/uL Monocytes # (0-1.0) k/uL Sodium (137-145) mmol/L Chloride (98-107) mmol/L Carbon Dioxide (22-30) mmol/L BUN (9-20) mg/dL Glucose 271 H (74-99) mg/dL POC Glucose (mg/dL) (75-99) mg/dL Calcium (8.4-10.2) mg/dL Phosphorus (2.5-4.5) mg/dL Total Bilirubin 1.7 H (0.2-1.3) mg/dL Lipase 16 L (23-300) U/L Urine Glucose (UA) (Negative) Urine Ketones (Negative) 11/19/18 11/19/18 Range/Units 08:03 09:00 WBC (3.8-10.6) k/uL Hgb (13.0-17.5) gm/dL Neutrophils # (1.3-7.7) k/uL Lymphocytes # (1.0-4.8) k/uL Monocytes # (0-1.0) k/uL Sodium (137-145) mmol/L Chloride (98-107) mmol/L Carbon Dioxide (22-30) mmol/L BUN (9-20) mg/dL Glucose (74-99) mg/dL POC Glucose (mg/dL) 242 H 239 H (75-99) mg/dL Calcium (8.4-10.2) mg/dL Phosphorus (2.5-4.5) mg/dL Total Bilirubin (0.2-1.3) mg/dL Lipase (23-300) U/L Urine Glucose (UA) (Negative) Urine Ketones (Negative) Assessment and Plan Assessment: AMS in the setting hyperglycemia and hypernatremia/dehydration consistent with metabolic encephalopathy less likely new acute intracranial structural changes such as CVA Plan: -Medical management as you are doing with insulin gtt and rehydration. -MRI Brain wo valerie r/o CVA, though likely low-yield. Awaiting study. -No clinical S+S to suggest complex partial seizure or DOBBY LOOMS PEGGER infection. Will not order EEG or LP. -Correct all metabolic derangements. -d/w patient and family. All questions answered. Thank you again for this consultation. Please call with ?. Time with Patient: Less than 30 (Time spent in direct patient care, greater than 50% of which was spent in [id number] counseling and coordination of care: 25 minutes.)
[2018-11-19] MEDS: HEPARIN SODIUM,PORCINE 5,000 UNIT/ML 1 ML VIAL SQ SCH ×3 (09:48→23:17)
[2018-11-19] MEDS: PANTOPRAZOLE 40 MG/10 ML VIAL IVP SCH (09:48)
[2018-11-19 10:12] LABS: Glucose,Whole Blood 230 mg/dL (75-99)
[2018-11-19 11:25] LABS: Glucose,Whole Blood 241 mg/dL (75-99)
[2018-11-19] MEDS: METOCLOPRAMIDE 5 MG/ML 2 ML VIAL IVP PRN (12:03)
[2018-11-19] MEDS ORDERED: INSULIN ASPART (NovoLOG) 100 UNIT/ML VIAL SQ SCH ×2 (12:30→17:30)
[2018-11-19 12:33] LABS: Glucose,Whole Blood 209 mg/dL (75-99)
[2018-11-19] MEDS: SODIUM CHLORIDE 0.45% 1,000 ML IV SCH ×2 (13:19→23:17)
[2018-11-19 13:49] LABS: Glucose,Whole Blood 253 mg/dL (75-99)
--- NOTE | 2018-11-19 14:31 | P.PN ---
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 Armando with a previous medical history significant for diabetes mellitus type 1 insulin requiring, history of diabetic polyneuropathy, psoriasis, history of spondylosis of the cervical spine, patient presented to the emergency department at [facility] today after 4 day history of increased abdominal pain associated with nausea and vomiting and not able to keep anything down, patient to the was found to have an elevated blood glucose level with hypernatremia and he was quite dehydrated he was started on insulin drip as well as IV fluid resuscitation was admitted to the hospital for evaluation, patient was seen in consultation by neurology for e valuation of mental status changes and encephalopathy that got better with IV hydration and IV insulin and he was recommended for the patient to go for MRI of the brain with and without gadolinium despite the low probability of CVA. Patient will have abdominal x-ray to rule out any ileus. 11/19: Patient is not able to eat anything and he continues to have significant nausea and vomiting with even ice chips, I spoke with his daughter at the bedside and she stated that he had lost quite a bit of weight and he has been having some issues with dysphagia as well he denies any heartburn, he denies any blood in the stool or black stool, abdominal x-ray did not show any evidence of acute abnormalities his abdomen is quite soft nonsurgical, we'll consult GI for possible EGD and increased Reglan 10 mg IV push every 6 hours [id number], patient also may need to have a gastric emptying study as well, if the EGD is negative patient will go for computed tomography scan of the abdomen and pelvis with contrast tomorrow morning. Review of Systems Constitutional: Denies anorexia, Denies chronic headaches, Denies lethargy, Denies weakness Eyes: bilateral blurred vision, denies bulging eye, denies decreased vision Ears: bilateral: decreased hearing Ears, nose, mouth and throat: Denies dysphagia, Denies neck lump, Denies swelling in throat, Denies sore throat Cardiovascular: Denies chest pain, Denies decreased exercise tolerance, Denies dyspnea on exertion, Denies lightheadedness, Denies rapid heart beat, Denies shortness of breath, Denies syncope Respiratory: Denies congestion, Denies cough with sputum, Denies hemoptysis, Denies home oxygen, Denies sleep apnea, Denies snoring, Denies wheezing Gastrointestinal: Reports indigestion, Reports nausea, Reports vomiting, Denies abdominal pain, Denies bloating, Denies heartburn, Denies hematemesis, Denies hematochezia, Denies loss of appetite Genitourinary: Reports nocturia, Denies dysuria Musculoskeletal: Reports low back pain Musculoskeletal: absent: ankle pain, ankle stiffness, ankle swelling, elbow pain, elbow stiffness, elbow swelling, foot pain, foot stiffness, foot swelling, hand pain, hand stiffness, hand swelling, hip pain, hip stiffness, hip swelling, knee pain, knee stiffness, knee swelling, shoulder pain, shoulder stiffness, shoulder swelling, wrist pain, wrist stiffness, wrist swelling Integumentary: Reports rash (Psoriatic plaque in a scattered areas), Denies pruritus Neurological: Reports confusion Psychiatric: Denies anxiety, Denies depression Endocrine: Denies fatigue, Denies weight change Objective - Vital Signs Vital signs: Vital Signs Temp 99.1 F 11/19/18 08:00 Pulse 78 11/19/18 08:00 Resp 16 11/19/18 08:00 BP 160/94 11/19/18 08:00 Pulse Ox 96 11/19/18 08:00 Intake & Output 11/18/18 11/19/18 11/19/18 18:59 06:59 18:59 Intake Total 142.047 755.841 240 Balance 142.047 755.841 240 Weight 68.039 kg 63.1 kg Intake: Intake, IV Titration 22.047 755.841 Amount D5-0.45% NaCl with KCl 750 20Meq/l 1,000 ml @ 150 mls/hr IV .Q6H40M [facility] Rx# :[id number] Insulin Regular 100 unit 22.047 5.841 In Sodium Chloride 0.9% 100 ml @ 0.1 UNITS/KG/HR 6.872 mls/hr IV .[id number] YAO Rx#:[id number] Oral 120 240 Other: Voiding Method Urinal # Voids 1 - Exam - Constitutional General appearance: average body habitus, no acute distress - EENT Eyes: anicteric sclerae, EOMI, PERRLA, no ptosis, no scleral icterus, normal appearance ENT: NA/AT, normal oropharynx, no thrush Ears: bilateral: normal - Neck Neck: no lymphadenopathy, normal ROM, no rigidity, no stridor, no thyromegaly Carotids: bilateral: upstroke normal Thyroid: bilateral: normal size - Respiratory Respiratory: bilateral: diminished, negative: dullness, rales, rhonchi, wheezing, prolonged expiration, prolonged inspiration - Cardiovascular Rhythm: regular Heart sounds: normal: S1, S2 Abnormal Heart Sounds: no systolic murmur, no S3 Gallop, no S4 Gallop - Gastrointestinal General gastrointestinal: normal bowel sounds, soft, no splenomegaly, no tenderness, no umbilical hernia, no ventral hernia - Integumentary Integumentary: decreased turgor - Neurologic Neurologic: CNII-XII intact - Musculoskeletal Musculoskeletal: gait normal, generalized weakness, strength equal bilaterally - Psychiatric Psychiatric: A&O x's 3, appropriate affect, intact judgment & insight - Labs CBC & Chem 7: 11/21/18 10:28 11/21/18 10:28 Labs: Abnormal Lab Results - Last 24 Hours (Table) 11/18/18 11/18/18 11/18/18 Range/Units 12:00 12:21 13:30 WBC (3.8-10.6) k/uL Neutrophils # (1.3-7.7) k/uL Monocytes # (0-1.0) k/uL Sodium (137-145) mmol/L Chloride (98-107) mmol/L Carbon Dioxide (22-30) mmol/L BUN (9-20) mg/dL Glucose (74-99) mg/dL POC Glucose (mg/dL) 269 H 197 H (75-99) mg/dL Phosphorus (2.5-4.5) mg/dL Total Bilirubin (0.2-1.3) mg/dL Lipase (23-300) U/L Urine Glucose (UA) 4+ H (Negative) Urine Ketones 1+ H (Negative) 11/18/18 11/18/18 11/18/18 Range/Units 14:08 15:08 15:55 WBC (3.8-10.6) k/uL Neutrophils # (1.3-7.7) k/uL Monocytes # (0-1.0) k/uL Sodium 151 H (137-145) mmol/L Chloride 110 H (98-107) mmol/L Carbon Dioxide 31 H (22-30) mmol/L BUN 38 H (9-20) mg/dL Glucose 115 H (74-99) mg/dL POC Glucose (mg/dL) 168 H 135 H (75-99) mg/dL Phosphorus 2.2 L (2.5-4.5) mg/dL Total Bilirubin (0.2-1.3) mg/dL Lipase (23-300) U/L Urine Glucose (UA) (Negative) Urine Ketones (Negative) 11/18/18 11/18/18 11/18/18 Range/Units 16:02 17:59 19:45 WBC (3.8-10.6) k/uL Neutrophils # (1.3-7.7) k/uL Monocytes # (0-1.0) k/uL Sodium 147 H (137-145) mmol/L Chloride 110 H (98-107) mmol/L Carbon Dioxide (22-30) mmol/L BUN 32 H (9-20) mg/dL Glucose 163 H (74-99) mg/dL POC Glucose (mg/dL) 109 H 116 H (75-99) mg/dL Phosphorus (2.5-4.5) mg/dL Total Bilirubin 1.7 H (0.2-1.3) mg/dL Lipase (23-300) U/L Urine Glucose (UA) (Negative) Urine Ketones (Negative) 11/18/18 11/18/18 11/18/18 Range/Units 19:45 20:14 21:09 WBC 21.9 H (3.8-10.6) k/uL Neutrophils # 19.0 H (1.3-7.7) k/uL Monocytes # 1.3 H (0-1.0) k/uL Sodium (137-145) mmol/L Chloride (98-107) mmol/L Carbon Dioxide (22-30) mmol/L BUN (9-20) mg/dL Glucose (74-99) mg/dL POC Glucose (mg/dL) 151 H 141 H (75-99) mg/dL Phosphorus (2.5-4.5) mg/dL Total Bilirubin (0.2-1.3) mg/dL Lipase (23-300) U/L Urine Glucose (UA) (Negative) Urine Ketones (Negative) 11/18/18 11/18/18 11/19/18 Range/Units 22:05 22:55 00:00 WBC 20.1 H (3.8-10.6) k/uL Neutrophils # 17.2 H (1.3-7.7) k/uL Monocytes # 1.1 H (0-1.0) k/uL Sodium (137-145) mmol/L Chloride (98-107) mmol/L Carbon Dioxide (22-30) mmol/L BUN (9-20) mg/dL Glucose (74-99) mg/dL POC Glucose (mg/dL) 154 H 183 H (75-99) mg/dL Phosphorus (2.5-4.5) mg/dL Total Bilirubin (0.2-1.3) mg/dL Lipase (23-300) U/L Urine Glucose (UA) (Negative) Urine Ketones (Negative) 11/19/18 11/19/18 11/19/18 Range/Units 00:00 00:10 01:12 WBC (3.8-10.6) k/uL Neutrophils # (1.3-7.7) k/uL Monocytes # (0-1.0) k/uL Sodium 146 H (137-145) mmol/L Chloride 111 H (98-107) mmol/L Carbon Dioxide (22-30) mmol/L BUN 27 H (9-20) mg/dL Glucose 205 H (74-99) mg/dL POC Glucose (mg/dL) 187 H 218 H (75-99) mg/dL Phosphorus (2.5-4.5) mg/dL Total Bilirubin (0.2-1.3) mg/dL Lipase (23-300) U/L Urine Glucose (UA) (Negative) Urine Ketones (Negative) 11/19/18 11/19/18 11/19/18 Range/Units 02:10 03:04 04:11 WBC (3.8-10.6) k/uL Neutrophils # (1.3-7.7) k/uL Monocytes # (0-1.0) k/uL Sodium (137-145) mmol/L Chloride (98-107) mmol/L Carbon Dioxide (22-30) mmol/L BUN (9-20) mg/dL Glucose (74-99) mg/dL POC Glucose (mg/dL) 189 H 226 H 244 H (75-99) mg/dL Phosphorus (2.5-4.5) mg/dL Total Bilirubin (0.2-1.3) mg/dL Lipase (23-300) U/L Urine Glucose (UA) (Negative) Urine Ketones (Negative) 11/19/18 11/19/18 11/19/18 Range/Units 05:15 06:05 07:12 WBC (3.8-10.6) k/uL Neutrophils # (1.3-7.7) k/uL Monocytes # (0-1.0) k/uL Sodium (137-145) mmol/L Chloride (98-107) mmol/L Carbon Dioxide (22-30) mmol/L BUN (9-20) mg/dL Glucose (74-99) mg/dL POC Glucose (mg/dL) 238 H 245 H 278 H (75-99) mg/dL Phosphorus (2.5-4.5) mg/dL Total Bilirubin (0.2-1.3) mg/dL Lipase (23-300) U/L Urine Glucose (UA) (Negative) Urine Ketones (Negative) 11/19/18 11/19/18 11/19/18 Range/Units 07:23 07:23 07:23 WBC 15.5 H (3.8-10.6) k/uL Neutrophils # 13.3 H (1.3-7.7) k/uL Monocytes # (0-1.0) k/uL Sodium (137-145) mmol/L Chloride (98-107) mmol/L Carbon Dioxide (22-30) mmol/L BUN (9-20) mg/dL Glucose 271 H (74-99) mg/dL POC Glucose (mg/dL) (75-99) mg/dL Phosphorus (2.5-4.5) mg/dL Total Bilirubin 1.7 H (0.2-1.3) mg/dL Lipase 16 L (23-300) U/L Urine Glucose (UA) (Negative) Urine Ketones (Negative) 11/19/18 11/19/18 11/19/18 Range/Units 08:03 09:00 10:11 WBC (3.8-10.6) k/uL Neutrophils # (1.3-7.7) k/uL Monocytes # (0-1.0) k/uL Sodium (137-145) mmol/L Chloride (98-107) mmol/L Carbon Dioxide (22-30) mmol/L BUN (9-20) mg/dL Glucose (74-99) mg/dL POC Glucose (mg/dL) 242 H 239 H 230 H (75-99) mg/dL Phosphorus (2.5-4.5) mg/dL Total Bilirubin (0.2-1.3) mg/dL Lipase (23-300) U/L Urine Glucose (UA) (Negative) Urine Ketones (Negative) Assessment and Plan Assessment: Assessment and plan: 1. Diabetic ketoacidosis. was switched from insulin drip and started on his insulin , advance diet as tolerated. 2. Intractable nausea and vomiting in part due to diabetic acidosis however his anion gap has closed and the patient continued to have some issues and talking to the patient and his family he seems to be having a problem for quite sometimes with significant weight loss we will consult GI for an EGD, increase Reglan to 10 mg IV push every 6 hours and keep the patient on clear liquid diets only. 3. Leukocytosis likely related to dehydration. Still elevated. 4. Diabetes mellitus type 2 insulin requiring. Continue on insulin drip overnight transition into [place] and Apidra with the patient is able to tolerate his diet. 5. Psoriasis. Stable. 6. 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 Stable. 7. Anion gap metabolic acidosis due to DKA. Continue IV fluid and IV insulin drip. Repeat CMP next 24 hours. 8. DVT prophylaxis. Heparin 5000 units subcutaneously every 8 hours. 9. GI prophylaxis. Protonix 40 mg push every 24 hours. 10. If EGD is negative computed tomography scan of the abdomen and pelvis with contrast.
[2018-11-19 16:34] LABS: Glucose,Whole Blood 107 mg/dL (75-99)
[2018-11-19] MEDS: METOCLOPRAMIDE 5 MG/ML 2 ML VIAL IVP SCH ×2 (17:42→23:17)
[2018-11-19 20:23] LABS: Glucose,Whole Blood 62 mg/dL (75-99)
[2018-11-19 20:38] LABS: Glucose,Whole Blood 55 mg/dL (75-99)
[2018-11-19] MEDS ORDERED: GLUCAGON 1 MG/ML VIAL ONE (20:40)
[2018-11-19 21:03] LABS: Glucose,Whole Blood 77 mg/dL (75-99)
[2018-11-19 21:29] LABS: Glucose,Whole Blood 123 mg/dL (75-99)
[2018-11-20] MEDS: ONDANSETRON 4 MG/2 ML VIAL IVP PRN (00:37)
[2018-11-20 03:03] LABS: Glucose,Whole Blood 57 mg/dL (75-99)
[2018-11-20] MEDS ORDERED: GLUCAGON 1 MG/ML VIAL ONE (03:24)
[2018-11-20 03:33] LABS: Glucose,Whole Blood 61 mg/dL (75-99)
[2018-11-20 03:56] LABS: Glucose,Whole Blood 78 mg/dL (75-99)
[2018-11-20 04:16] LABS: Glucose,Whole Blood 65 mg/dL (75-99)
[2018-11-20 04:47] LABS: Glucose,Whole Blood 70 mg/dL (75-99)
[2018-11-20] MEDS: METOCLOPRAMIDE 5 MG/ML 2 ML VIAL IVP SCH ×3 (05:10→18:01)
[2018-11-20] MEDS ORDERED: DEXTROSE 5%-0.45% NACL 1,000 ML IV SCH (05:45)
[2018-11-20 06:10] LABS: Glucose,Whole Blood 111 mg/dL (75-99)
[2018-11-20 06:56] LABS: Basophils % (A) 0 %; Eosinophils # (A) 0.1 k/uL (0-0.7); Eosinophils % (A) 1 %; HCT 46.4 % (39.0-53.0); HGB 15.1 gm/dL (13.0-17.5); Lymphocytes # (A) 1.2 k/uL (1.0-4.8); Lymphocytes % (A) 11 %; MCH 29.4 pg (25.0-35.0); MCHC 32.6 g/dL (31.0-37.0); MCV 90.1 fL (80.0-100.0); Mean Platelet Volume 7.4; Monocytes # (A) 0.7 k/uL (0-1.0); Monocytes % (A) 6 %; Neutrophils # (A) 8.9 k/uL (1.3-7.7); Neutrophils % (A) 81 %; Platelet Count 210 k/uL (150-450); RBC 5.15 m/uL (4.30-5.90); RDW 12.9 % (11.5-15.5)
[2018-11-20 07:05] LABS: ALT 61 U/L (21-72); AST 50 U/L (17-59); African American GFR (CKD) >90 (>60 ml/min/1.73 sqM); Albumin 3.6 g/dL (3.5-5.0); Alkaline Phosphatase 89 U/L (38-126); Anion Gap 8 mmol/L; Blood Urea Nitrogen 17 mg/dL (9-20); Carbon Dioxide 30 mmol/L (22-30); Chloride 105 mmol/L (98-107); Glucose 119 mg/dL (74-99); Potassium 3.4 mmol/L (3.5-5.1); Sodium 143 mmol/L (137-145); Total Bilirubin 1.5 mg/dL (0.2-1.3); Total Protein 6.2 g/dL (6.3-8.2)
[2018-11-20] MEDS: HEPARIN SODIUM,PORCINE 5,000 UNIT/ML 1 ML VIAL SQ SCH ×2 (08:36→16:42)
[2018-11-20] MEDS: PANTOPRAZOLE 40 MG/10 ML VIAL IVP SCH (08:36)
--- NOTE | 2018-11-20 09:58 | MR ---
MRI brain without contrast HISTORY: Altered mental status Multiplanar multisequence imaging through the brain. No comparisons There is no restricted diffusion. No hemorrhage or hydrocephalus. Normal vascular flow voids present. Cortical atrophy is likely age-related. Cerebellopontine angles, corpus callosum, pituitary, cervica l medullary junction are within normal limits. Ventricular confluent and scattered hyperintensities a re present on inversion recovery T2-weighted sequences, approximately 3 lesions present. Orbits show symmetric appearance. There is mild inflammatory change present within the ethmoid air cells. IMPRESSION: Age-related atrophy and probable chronic small vessel ischemic change. No evident subacut e ischemia.
--- NOTE | 2018-11-20 10:25 | P.CONS ---
History of Present Illness - Reason for Consult Consult date: 11/20/18 nausea vomiting Requesting physician: Umu Vela - Chief Complaint nausea vomiting - History of Present Illness 73-year-old gentleman with a long-standing history of diabetes mellitus 1979, cholecystectomy, abdominal hernia repair, chronic back pain admitted with diabetic ketoacidosis, intractable nausea vomiting mild upper abdominal discomfort mental status changes without fever chills hematemesis hematochezia melena. No history of EGD. Colonoscopy 10 years ago. Patient states he intermittently has daily episodes of intractable nausea vomiting some days are better than others. Vehemently denies gross hematemesis on a daily or melena. Abdominal discomfort in the upper abdomen centered mostly around vomiting otherwise when there is no nausea vomiting is not experiencing abdominal pain. Patient reports difficulty controlling his blood sugars lately. Admission glucose 303 presently 111. Admission white count 19.1 presently 11. He will and 17.6 presently 15.1. Acetone positive. Sodium 148. Potassium 4.6. BUN 40. Creatinine 1.1. LFTs within normal limits. Lipase 16. Abdominal x-rays no acute process. Evaluated by neurology MRI brain age-related atrophy probable chronic small vessel ischemic change. No evidence of subacute ischemia. Patient's mental status is back to baseline he is alert and oriented 3. Denies NSAID or excessive aspirin usage. No alcohol or tobacco. No history of peptic ulcer disease gastric or bowel surgeries. Occasional Pepto-Bismol prior to admission no home GI prophylaxis medications. Review of Systems Constitutional: Denies fever, chills, sweats, weight gain, or loss. Mental status changes. HEENT: Negative for migraines, blurred vision or loss, earaches, drainage, tinnitus, oral mucosal lesions, dysphagia, or odynophagia. Cardiac: Negative for chest pain, arrhythmias, or palpitation. Respiratory: Negative for shortness of breath, hemoptysis, cough, or sputum production. Gastrointestinal: See HPI for pertinent findings. Genitourinary: Negative for hematuria, urgency, frequency, polyuria, dysuria, or penile discharge. Musculoskeletal: Negative for muscle aches, swelling, arthritis, and arthralgias. Neurologic: Negative for stroke or TIA. Endocrine: Negative for thyroid problems. Skin: Negative for rash or itching. Psychiatric: Negative history for depression and anxiety Past Medical History Past Medical History: COPD, Diabetes Mellitus, Musculoskeletal Disorder, Osteoarthritis (OA), Prostate Disorder Additional Past Medical History / Comment(s): IDDM type II, arthritis in multiple joints, spinal stenosis, cervical and back pain, History of Any Multi-Drug Resistant Organisms: None Reported Past Surgical History: Cholecystectomy, Hernia Repair Additional Past Surgical History / Comment(s): R inguinal hernia repair, colonoscopies, bilateral cataract removals/lens implants. Past Anesthesia/Blood Transfusion Reactions: No Reported Reaction Smoking Status: Former smoker (Patient used to smoke about 2 pack every day smoked for many years and quit about 1999) Past Alcohol Use History: Occasional Past Drug Use History: None Reported - Past Family History Father Family Medical History: Coronary Artery Disease (CAD) (Father had 3 vessel coronary artery disease and he at age 67 with back surgery.) Additional Family Medical History / Comment(s): Father had 3 vessel CABG Mother Family Medical History: Dementia (Mother at age of 83 from tuberculosis.) Additional Family Medical History / Comment(s): Mother had TB Brother(s) Family Medical History: No Reported History (Patient has 2 brothers one of them with tuberculosis.) Additional Family Medical History / Comment(s): Brother had TB Sister(s) Family Medical History: No Reported History (Patient has 2 sisters no major medical problems.) Daughter(s) Family Medical History: No Reported History (Patient has 2 daughters no major medical problems.) Son(s) Family Medical History: No Reported History (Patient has 2 sons no major medical problems.) Medications and Allergies Home Medications Medication Instructions Recorded Confirmed Type Insulin Glargine,Hum.rec.anlog 17 units SQ DAILY 11/18/18 11/18/18 History [Toujeo Solostar] Insulin Glulisine [Apidra Solostar] 4 unit SQ AC-LUNCH 11/18/18 11/18/18 History Insulin Glulisine [Apidra Solostar] 7 unit SQ AC-SUPPER 11/18/18 11/18/18 History Insulin Glulisine [Apidra Solostar] See Protocol SQ AC-BRKFST 11/18/18 11/18/18 History Allergies Allergy/AdvReac Type Severity Reaction Status Date / Time No Known Allergies Allergy Verified 11/18/18 09:51 Physical Exam Vitals: Vital Signs Temp Pulse Resp BP Pulse Ox 11/20/18 04:00 97 F L 76 16 128/62 95 11/19/18 23:46 98 F 82 16 124/74 96 11/19/18 20:00 98 F 88 16 168/80 98 11/19/18 16:00 98.3 F 83 17 165/88 11/19/18 12:00 87 18 146/66 97 Intake and Output 11/19/18 11/20/18 11/20/18 22:59 06:59 14:59 Intake Total 444 100 240 Output Total 600 400 Balance -156 100 -160 Intake: Oral 444 100 240 Output: Urine 600 400 Other: Weight 64.2 kg General appearance: The patient is alert, oriented, in no acute distress. HET: Head is normocephalic and atraumatic. Pupils are equal and reactive. Oropharynx is clear without lesions. Neck: Supple without lymphadenopathy. Trachea midline. Heart: S1 S2. Regular rate and rhythm. Lungs: No crackles or wheezes are heard. Abdomen: Soft, nontender, nondistended with bowel sounds. No peritoneal signs. No palpable organomegaly or masses. Extremities: Normal skin color and turgor. No cyanosis, rash, ulceration, club sulma, or edema. Radial and pedal pulses are 2/4 bilaterally. Neurological: No focal deficits. Strength and sensation are grossly intact. Results CBC & Chem 7: 11/20/18 06:12 11/20/18 06:12 Labs: Abnormal Lab Results - Last 24 Hours (Table) 11/19/18 11/19/18 11/19/18 Range/Units 07:23 11:21 12:32 WBC (3.8-10.6) k/uL Neutrophils # (1.3-7.7) k/uL Potassium (3.5-5.1) mmol/L Glucose (74-99) mg/dL POC Glucose (mg/dL) 241 H 209 H (75-99) mg/dL Total Bilirubin (0.2-1.3) mg/dL Total Protein (6.3-8.2) g/dL Vitamin B12 1012.0 H (200.0-944.0) pg/mL 11/19/18 11/19/18 11/19/18 Range/Units 13:37 16:30 20:21 WBC (3.8-10.6) k/uL Neutrophils # (1.3-7.7) k/uL Potassium (3.5-5.1) mmol/L Glucose (74-99) mg/dL POC Glucose (mg/dL) 253 H 107 H 62 L (75-99) mg/dL Total Bilirubin (0.2-1.3) mg/dL Total Protein (6.3-8.2) g/dL Vitamin B12 (200.0-944.0) pg/mL 11/19/18 11/19/18 11/20/18 Range/Units 20:37 21:27 03:02 WBC (3.8-10.6) k/uL Neutrophils # (1.3-7.7) k/uL Potassium (3.5-5.1) mmol/L Glucose (74-99) mg/dL POC Glucose (mg/dL) 55 L 123 H 57 L (75-99) mg/dL Total Bilirubin (0.2-1.3) mg/dL Total Protein (6.3-8.2) g/dL Vitamin B12 (200.0-944.0) pg/mL 11/20/18 11/20/18 11/20/18 Range/Units 03:21 04:04 04:45 WBC (3.8-10.6) k/uL Neutrophils # (1.3-7.7) k/uL Potassium (3.5-5.1) mmol/L Glucose (74-99) mg/dL POC Glucose (mg/dL) 61 L 65 L 70 L (75-99) mg/dL Total Bilirubin (0.2-1.3) mg/dL Total Protein (6.3-8.2) g/dL Vitamin B12 (200.0-944.0) pg/mL 11/20/18 11/20/18 11/20/18 Range/Units 06:09 06:12 06:12 WBC 11.0 H (3.8-10.6) k/uL Neutrophils # 8.9 H (1.3-7.7) k/uL Potassium 3.4 L (3.5-5.1) mmol/L Glucose 119 H (74-99) mg/dL POC Glucose (mg/dL) 111 H (75-99) mg/dL Total Bilirubin 1.5 H (0.2-1.3) mg/dL Total Protein 6.2 L (6.3-8.2) g/dL Vitamin B12 (200.0-944.0) pg/mL Abdominal x-ray: report reviewed (Dr. Amor) Assessment and Plan (1) Nausea & vomiting Narrative/Plan: 73-year-old male with a long-standing history of diabetes mellitus presents with acute diabetic ketoacidosis mental status changes intractable nausea vomiting without fever or bleeding. Suspected underlying gastroparesis possible gastr itis esophagitis underlying peptic ulcer disease cannot be excluded. Current Visit: Yes Status: Acute Code(s): R11.2 - NAUSEA WITH VOMITING, UNSPECIFIED SNOMED Code(s): 05264796 (2) Diabetes mellitus Current Visit: Yes Status: Acute Code(s): E11.9 - TYPE 2 DIABETES MELLITUS WITHOUT COMPLICATIONS SNOMED Code(s): 50034815 (3) DKA (diabetic ketoacidoses) Current Visit: Yes Status: Acute Code(s): E11.10 - TYPE 2 DIABETES MELLITUS WITH KETOACIDOSIS WITHOUT COMA SNOMED Code(s): 289779245 Plan: 1. We'll proceed with EGD evaluation possible outpatient gastric emptying study as clinically indicated. Continue with Zofran and Reglan therapy. Glycemic control. Nothing by mouth except medications. 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 The patient has indicated understanding and acceptance of the risks and procedures discussed. Thank you for this kind referral and the opportunity to participate in the care of your patient. This consultation was discussed with Dr. Amor. The impression and plan of care have been directed as dictated.
[2018-11-20] MEDS: D5-0.45% NACL WITH KCL 20MEQ/L 1,000 ML IV SCH ×2 (11:41→12:46)
[2018-11-20 11:44] LABS: Glucose,Whole Blood 240 mg/dL (75-99)
--- NOTE | 2018-11-20 12:37 | P.PN ---
Subjective Progress Note Date: 11/20/18 Principal diagnosis: AMS due to metabolic encephalopathy N/V and AMS have resolved. Awaiting UEGD this pm. No new neuro c/o. Objective - Vital Signs Vital signs: Vital Signs Temp 98.3 F 11/20/18 10:17 Pulse 93 11/20/18 10:17 Resp 14 11/20/18 10:17 BP 125/72 11/20/18 10:17 Pulse Ox 93 L 11/20/18 10:17 Intake & Output 11/19/18 11/20/18 11/20/18 18:59 06:59 18:59 Intake Total 702 322 240 Output Total 600 400 Balance 102 322 -160 Weight 63.1 kg 64.2 kg Intake: Oral 702 322 240 Output: Urine 600 400 Other: Voiding Method Urinal # Voids 1 - Exam Gen NAD Pleasant and cooperative MS A+Ox4 Normal speech CN II-XII grossly intact no nystagmus Motor Normal bulk/tone No tremors GARCIA x4 Sens Intact to LT x4 Coord Not tested DTRs tr throughout Gait Deferred - Labs CBC & Chem 7: 11/20/18 06:12 11/20/18 06:12 Labs: Abnormal Lab Results - Last 24 Hours (Table) 11/19/18 11/19/18 11/19/18 Range/Units 07:23 12:32 13:37 WBC (3.8-10.6) k/uL Neutrophils # (1.3-7.7) k/uL Potassium (3.5-5.1) mmol/L Glucose (74-99) mg/dL POC Glucose (mg/dL) 209 H 253 H (75-99) mg/dL Total Bilirubin (0.2-1.3) mg/dL Total Protein (6.3-8.2) g/dL Vitamin B12 1012.0 H (200.0-944.0) pg/mL 11/19/18 11/19/18 11/19/18 Range/Units 16:30 20:21 20:37 WBC (3.8-10.6) k/uL Neutrophils # (1.3-7.7) k/uL Potassium (3.5-5.1) mmol/L Glucose (74-99) mg/dL POC Glucose (mg/dL) 107 H 62 L 55 L (75-99) mg/dL Total Bilirubin (0.2-1.3) mg/dL Total Protein (6.3-8.2) g/dL Vitamin B12 (200.0-944.0) pg/mL 11/19/18 11/20/18 11/20/18 Range/Units 21:27 03:02 03:21 WBC (3.8-10.6) k/uL Neutrophils # (1.3-7.7) k/uL Potassium (3.5-5.1) mmol/L Glucose (74-99) mg/dL POC Glucose (mg/dL) 123 H 57 L 61 L (75-99) mg/dL Total Bilirubin (0.2-1.3) mg/dL Total Protein (6.3-8.2) g/dL Vitamin B12 (200.0-944.0) pg/mL 11/20/18 11/20/18 11/20/18 Range/Units 04:04 04:45 06:09 WBC (3.8-10.6) k/uL Neutrophils # (1.3-7.7) k/uL Potassium (3.5-5.1) mmol/L Glucose (74-99) mg/dL POC Glucose (mg/dL) 65 L 70 L 111 H (75-99) mg/dL Total Bilirubin (0.2-1.3) mg/dL Total Protein (6.3-8.2) g/dL Vitamin B12 (200.0-944.0) pg/mL 11/20/18 11/20/18 11/20/18 Range/Units 06:12 06:12 11:43 WBC 11.0 H (3.8-10.6) k/uL Neutrophils # 8.9 H (1.3-7.7) k/uL Potassium 3.4 L (3.5-5.1) mmol/L Glucose 119 H (74-99) mg/dL POC Glucose (mg/dL) 240 H (75-99) mg/dL Total Bilirubin 1.5 H (0.2-1.3) mg/dL Total Protein 6.2 L (6.3-8.2) g/dL Vitamin B12 (200.0-944.0) pg/mL - Imaging and Cardiology MRI Brain wo valerie 11/20/18. Age-related atrophy and confluent periventricular and scattered hyperintensities on T2/FLAIR sequences. No area of restricted diffusion to suggest acute ischemia. No other acute intracranial abnormalities seen. Assessment and Plan Assessment: AMS in the setting hyperglycemia and hypernatremia/dehydration consistent with metabolic encephalopathy. Plan: -Medical management to correct metabolic derangements and dehydration. -MRI Brain wo valerie did r/o CVA. It does show subcortical white matter changes consistent with chronic small vessel ischemia from his DM. MRI findings d/w patient/family in detail. -No clinical S+S to suggest complex partial seizure or PRODUCTION PAINTER infection. Will not order EEG or LP. -d/w patient and family. All questions answered. -No other neuro recs at this time. Will sign off. Please call with new ?. Thank you again for this consultation. Please call with ?. Time with Patient: Less than 30 (Time spent in direct patient care, greater than 50% of which was spent in zpdy-tr-ical counseling and coordination of care: 25 minutes.)
[2018-11-20] MEDS: INSULIN ASPART (NovoLOG) 100 UNIT/ML VIAL SQ SCH ×2 (12:50→18:01)
--- NOTE | 2018-11-20 15:08 | P.PN ---
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 Armando with a previous medical history significant for diabetes mellitus type 1 insulin requiring, history of diabetic polyneuropathy, psoriasis, history of spondylosis of the cervical sp ine, patient presented to the emergency department at [facility] today after 4 day history of increased abdominal pain associated with nausea and vomiting and not able to keep anything down, patient to the was found to have an elevated blood glucose level with hypernatremia and he was quite dehydrated he was started on insulin drip as well as IV fluid resuscitation was admitted to the hospital for evaluation, patient was seen in consultation by neurology for evaluation of mental status changes and encephalopathy that got better with IV hydration and IV insulin and he was recommended for the patient to go for MRI of the brain with and without gadolinium despite the low probability of CVA. Patient will have abdominal x-ray to rule out any ileus. 11/19: Patient is not able to eat anything and he continues to have significant nausea and vomiting with even ice chips, I spoke with his daughter at the bedside and she stated that he had lost quite a bit of weight and he has been having some issues with dysphagia as well he denies any heartburn, he denies any blood in the stool or black stool, abdominal x-ray did not show any evidence of acute abnormalities his abdomen is quite soft nonsurgical, we'll consult GI for possible EGD and increased Reglan 10 mg IV push every 6 hours [id number], patient also may need to have a gastric emptying study as well, if the EGD is negative patient will go for computed tomography scan of the abdomen and pelvis with contrast tomorrow morning. 11/20: MRI of the brain revealed age-related atrophy and probable chronic small vessel ischemic change. No evidence of subacute ischemia. Neurology's sign off this case. The patient was seen this morning by GI with plan for EGD this afternoon. His nausea and vomiting have resolved. Patient denies any abdominal pain or tenderness. A daughter is at the bedside questions have been answered. Objective - Vital Signs Vital signs: Vital Signs Temp 97 F L 11/20/18 04:00 Pulse 76 11/20/18 04:00 Resp 16 11/20/18 04:00 BP 128/62 11/20/18 04:00 Pulse Ox 95 11/20/18 04:00 Intake & Output 11/19/18 11/20/18 11/20/18 18:59 06:59 18:59 Intake Total 702 322 240 Output Total 600 400 Balance 102 322 -160 Weight 63.1 kg 64.2 kg Intake: Oral 702 322 240 Output: Urine 600 400 Other: # Voids 1 - Exam - Constitutional General appearance: average body habitus, no acute distress, daughter at bedside. - EENT Eyes: anicteric sclerae, EOMI, PERRLA, no ptosis, no scleral icterus, normal appearance ENT: NA/AT, normal oropharynx, no thrush Ears: bilateral: normal - Neck Neck: no lymphadenopathy, normal ROM, no rigidity, no stridor, no thyromegaly Carotids: bilateral: upstroke normal Thyroid: bilateral: normal size - Respiratory Respiratory: bilateral: diminished, negative: dullness, rales, rhonchi, wheezing, prolonged expiration, prolonged inspiration - Cardiovascular Rhythm: regular Heart sounds: normal: S1, S2 Abnormal Heart Sounds: no systolic murmur, no S3 Gallop, no S4 Gallop - Gastrointestinal General gastrointestinal: normal bowel sounds, soft, no splenomegaly, no tenderness, no umbilical hernia, no ventral hernia - Integumentary Integumentary: decreased turgor - Neurologic Neurologic: CNII-XII intact - Musculoskeletal Musculoskeletal: gait normal, generalized weakness, strength equal bilaterally - Psychiatric Psychiatric: A&O x's 3, appropriate affect, intact judgment & insight - Labs CBC & Chem 7: 11/20/18 06:12 11/20/18 06:12 Labs: Abnormal Lab Results - Last 24 Hours (Table) 11/19/18 11/19/18 11/19/18 Range/Units 07:23 11:21 12:32 WBC (3.8-10.6) k/uL Neutrophils # (1.3-7.7) k/uL Potassium (3.5-5.1) mmol/L Glucose (74-99) mg/dL POC Glucose (mg/dL) 241 H 209 H (75-99) mg/dL Total Bilirubin (0.2-1.3) mg/dL Total Protein (6.3-8.2) g/dL Vitamin B12 1012.0 H (200.0-944.0) pg/mL 11/19/18 11/19/18 11/19/18 Range/Units 13:37 16:30 20:21 WBC (3.8-10.6) k/uL Neutrophils # (1.3-7.7) k/uL Potassium (3.5-5.1) mmol/L Glucose (74-99) mg/dL POC Glucose (mg/dL) 253 H 107 H 62 L (75-99) mg/dL Total Bilirubin (0.2-1.3) mg/dL Total Protein (6.3-8.2) g/dL Vitamin B12 (200.0-944.0) pg/mL 11/19/18 11/19/18 11/20/18 Range/Units 20:37 21:27 03:02 WBC (3.8-10.6) k/uL Neutrophils # (1.3-7.7) k/uL Potassium (3.5-5.1) mmol/L Glucose (74-99) mg/dL POC Glucose (mg/dL) 55 L 123 H 57 L (75-99) mg/dL Total Bilirubin (0.2-1.3) mg/dL Total Protein (6.3-8.2) g/dL Vitamin B12 (200.0-944.0) pg/mL 11/20/18 11/20/18 11/20/18 Range/Units 03:21 04:04 04:45 WBC (3.8-10.6) k/uL Neutrophils # (1.3-7.7) k/uL Potassium (3.5-5.1) mmol/L Glucose (74-99) mg/dL POC Glucose (mg/dL) 61 L 65 L 70 L (75-99) mg/dL Total Bilirubin (0.2-1.3) mg/dL Total Protein (6.3-8.2) g/dL Vitamin B12 (200.0-944.0) pg/mL 11/20/18 11/20/18 11/20/18 Range/Units 06:09 06:12 06:12 WBC 11.0 H (3.8-10.6) k/uL Neutrophils # 8.9 H (1.3-7.7) k/uL Potassium 3.4 L (3.5-5.1) mmol/L Glucose 119 H (74-99) mg/dL POC Glucose (mg/dL) 111 H (75-99) mg/dL Total Bilirubin 1.5 H (0.2-1.3) mg/dL Total Protein 6.2 L (6.3-8.2) g/dL Vitamin B12 (200.0-944.0) pg/mL Assessment and Plan Plan: 1. Diabetic ketoacidosis. Continue NovoLog scale. 2. Intractable nausea and vomiting in part due to diabetic acidosis however his anion gap has closed and the patient continued to have some issues and talking to the patient and his family he seems to be having a problem for quite sometim es with significant weight loss we will consult GI for an EGD, increase Reglan to 10 mg IV push every 6 hours and keep the patient on clear liquid diets only. EGD scheduled for this afternoon. 3. Leukocytosis likely related to dehydration. Still elevated, improving. 4. Diabetes mellitus type 2 insulin requiring. Continue on insulin drip overnight transition into [place] and Apidra with the patient is able to tolerate his diet. 5. Psoriasis. Stable. 6. 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 Stable. 7. Anion gap metabolic acidosis due to DKA. Continue IV fluid and IV insulin drip. Repeat CMP next 24 hours. 8. DVT prophylaxis. Heparin 5000 units subcutaneously every 8 hours. 9. GI prophylaxis. Protonix 40 mg push every 24 hours. 10. If EGD is negative computed tomography scan of the abdomen and pelvis with contrast. Discharge plan: Home Impression and plan of care have been directed as dictated by the signing physician. Mercy Dugan nurse practitioner acting as scribe for signing physician. <Umu Vela - Last Filed: 11/21/18 12:37> Subjective Review of systems: Constitutional: Denies anorexia, Denies chronic headaches, Denies lethargy, Denies weakness Eyes: bilateral blurred vision, denies bulging eye, denies decreased vision Ears: bilateral: decreased hearing Ears, nose, mouth and throat: Denies dysphagia, Denies neck lump, Denies swelling in throat, Denies sore throat Cardiovascular: Denies chest pain, Denies decreased exercise tolerance, Denies dyspnea on exertion, Denies lightheadedness, Denies rapid heart beat, Denies shortness of breath, Denies syncope Respiratory: Denies congestion, Denies cough with sputum, Denies hemoptysis, Denies home oxygen, Denies sleep apnea, Denies snoring, Denies wheezing Gastrointestinal: Reports indigestion, Reports nausea, Reports vomiting, Denies abdominal pain, Denies bloating, Denies heartburn, Denies hematemesis, Denies hematochezia, Denies loss of appetite Genitourinary: Reports nocturia, Denies dysuria Musculoskeletal: Reports low back pain Musculoskeletal: absent: ankle pain, ankle stiffness, ankle swelling, elbow pain, elbow stiffness, elbow swelling, foot pain, foot stiffness, foot swelling, hand pain, hand stiffness, hand swelling, hip pain, hip stiffness, hip swelling, knee pain, knee stiffness, knee swelling, shoulder pain, shoulder stiffness, shoulder swelling, wrist pain, wrist stiffness, wrist swelling Integumentary: Reports rash (Psoriatic plaque in a scattered areas), Denies pruritus Neurological: Reports confusion Psychiatric: Denies anxiety, Denies depression Endocrine: Denies fatigue, Denies weight change Objective - Vital Signs Vital signs: Vital Signs Temp 99.0 F 11/21/18 06:32 Pulse 61 11/21/18 06:32 Resp 16 11/21/18 06:32 BP 100/54 11/21/18 06:32 Pulse Ox 98 11/21/18 06:32 Intake & Output 11/20/18 11/21/18 11/21/18 18:59 06:59 18:59 Intake Total 530 Output Total 400 Balance 130 Weight 64.8 kg 64.8 kg Intake: IV 50 Oral 480 Output: Urine 400 Other: Voiding Method Urinal Urinal # Voids 2 2 - Labs CBC & Chem 7: 11/21/18 10:28 11/21/18 10:28 Labs: Abnormal Lab Results - Last 24 Hours (Table) 11/20/18 11/20/18 11/21/18 Range/Units 16:46 20:19 03:26 WBC (3.8-10.6) k/uL Potassium (3.5-5.1) mmol/L Carbon Dioxide (22-30) mmol/L Glucose (74-99) mg/dL POC Glucose (mg/dL) 307 H 271 H 152 H (75-99) mg/dL Total Bilirubin (0.2-1.3) mg/dL 11/21/18 11/21/18 11/21/18 Range/Units 07:01 10:28 10:28 WBC 30.7 H (3.8-10.6) k/uL Potassium 3.4 L (3.5-5.1) mmol/L Carbon Dioxide 34 H (22-30) mmol/L Glucose 156 H (74-99) mg/dL POC Glucose (mg/dL) 116 H (75-99) mg/dL Total Bilirubin 2.1 H (0.2-1.3) mg/dL 11/21/18 Range/Units 11:57 WBC (3.8-10.6) k/uL Potassium (3.5-5.1) mmol/L Carbon Dioxide (22-30) mmol/L Glucose (74-99) mg/dL POC Glucose (mg/dL) 202 H (75-99) mg/dL Total Bilirubin (0.2-1.3) mg/dL
[2018-11-20] MEDS ORDERED: IV FLUID CONTINUATION 1,000 ML IV ONE (15:18)
[2018-11-20 16:48] LABS: Glucose,Whole Blood 307 mg/dL (75-99)
[2018-11-20] MEDS ORDERED: PROPOFOL 10 MG/ML 20 ML VIAL IV ONE (17:19)
--- NOTE | 2018-11-20 17:36 | P.PCN ---
Date of Procedure: 11/20/18 Description of Procedure: BRIEF HISTORY: 73-year-old gentleman with a long-standing history of diabetes mellitus 1979, cholecystectomy, abdominal hernia repair, chronic back pain admitted with diabetic ketoacidosis, intractable nausea vomiting mild upper abdominal discomfort mental status changes without fever chills hematemesis hematochezia melena. No history of EGD. Colonoscopy 10 years ago. Patient states he intermittently has daily episodes of intractable nausea vomiting some days are better than others. Vehemently denies gross hematemesis on a daily or melena. Abdominal discomfort in the upper abdomen centered mostly around vomiting otherwise when there is no nausea vomiting is not experiencing abdominal pain. Patient reports difficulty controlling his blood sugars lately. Admission glucose 303 presently 111. Admission white count 19.1 presently 11. He will and 17.6 presently 15.1. Acetone positive. Sodium 148. Potassium 4.6. BUN 40. Creatinine 1.1. LFTs within normal limits. Lipase 16. Abdominal x-rays no acute process. Evaluated by neurology MRI brain age-related atrophy probable chronic small vessel ischemic change. No evidence of subacute ischemia. Patient's mental status is back to baseline he is alert and oriented 3. Denies NSAID or excessive aspirin usage. No alcohol or tobacco. No history of peptic ulcer disease gastric or bowel surgeries. Occasional Pepto-Bismol prior to admission no home GI prophylaxis medications.. PROCEDURE PERFORMED: Esophagogastroduodenoscopy with biopsy. PREOPERATIVE DIAGNOSIS: Intractable nausea and vomiting. ESTIMATED BLOOD LOSS: Minimal. IV sedation per anesthesia. PROCEDURE: After informed consent was obtained, the patient was brought into the endoscopy unit. IV sedation was administered by Anesthesia under continuous monitoring. Initially the Olympus GIF-140 video endoscope was inserted into the mouth. Esophagus intubated without any difficulty. It was gradually advanced into the stomach and duodenum and carefully examined. The bulb and the second part of the duodenum appeared significant for some mild erythema consistent with mild duodenitis with biopsies taken. The scope at this time was withdrawn to the stomach, adequately insufflated with air, and upon careful examination, mucosa of the antrum, body, cardia and the fundus were significant for diffuse erythema and nodularity in the antrum and body suggestive of moderate gastritis with biopsies of the antrum and body taken. The scope was then withdrawn into the esophagus. The GE junction was located at 40 cm from the incisors. The esophagus appeared normal. There were no erosions or ulcerations seen and the patient tolerated the procedure well. IMPRESSION: 1. Moderate gastritis antrum and body, biopsied. 2. Mild duodenitis, biopsied. RECOMMENDATIONS: The findings of this examination were discussed with the patient and his daughter. Okay for diet with no restrictions. Continue Protonix daily. Await pathology from biopsies.
[2018-11-20 20:21] LABS: Glucose,Whole Blood 271 mg/dL (75-99)
[2018-11-20] MEDS ORDERED: INSULIN DETEMIR (LEVEMIR) 100 UNIT/ML SYR SQ SCH (22:00)
[2018-11-21] MEDS: INSULIN ASPART (NovoLOG) 100 UNIT/ML VIAL SQ SCH ×3 (00:11→12:00)
[2018-11-21] MEDS: HEPARIN SODIUM,PORCINE 5,000 UNIT/ML 1 ML VIAL SQ SCH ×2 (00:36→09:15)
[2018-11-21] MEDS: METOCLOPRAMIDE 5 MG/ML 2 ML VIAL IVP SCH ×3 (00:36→11:59)
[2018-11-21 03:28] LABS: Glucose,Whole Blood 152 mg/dL (75-99)
[2018-11-21 06:33] VITALS: BP 100/54; PULSE 61; RESP 16; TEMP 99
[2018-11-21 07:02] LABS: Glucose,Whole Blood 116 mg/dL (75-99)
[2018-11-21] MEDS: PANTOPRAZOLE 40 MG/10 ML VIAL IVP SCH (09:16)
[2018-11-21 10:37] VITALS: BMI 26.1
[2018-11-21 11:24] LABS: Basophils # (A) 0.1 k/uL (0-0.2); Basophils % (A) 0 %; Eosinophils # (A) 0.1 k/uL (0-0.7); Eosinophils % (A) 0 %; HCT 44.5 % (39.0-53.0); HGB 14.8 gm/dL (13.0-17.5); Lymphocytes # (A) 2.1 k/uL (1.0-4.8); Lymphocytes % (A) 7 %; MCHC 33.3 g/dL (31.0-37.0); MCV 90.1 fL (80.0-100.0); Mean Platelet Volume 7.6; Monocytes # (A) 1.3 k/uL (0-1.0); Monocytes % (A) 4 %; Neutrophils % (A) 88 %; Platelet Count 187 k/uL (150-450); RBC 4.94 m/uL (4.30-5.90); RDW 12.8 % (11.5-15.5); WBC 30.7 k/uL (3.8-10.6)
[2018-11-21 11:25] LABS: ALT 66 U/L (21-72); AST 41 U/L (17-59); African American GFR (CKD) >90 (>60 ml/min/1.73 sqM); Albumin 3.8 g/dL (3.5-5.0); Alkaline Phosphatase 90 U/L (38-126); Anion Gap 9 mmol/L; Blood Urea Nitrogen 17 mg/dL (9-20); Calcium 9.4 mg/dL (8.4-10.2); Carbon Dioxide 34 mmol/L (22-30); Chloride 98 mmol/L (98-107); Glucose 156 mg/dL (74-99); Potassium 3.4 mmol/L (3.5-5.1); Sodium 141 mmol/L (137-145); Total Bilirubin 2.1 mg/dL (0.2-1.3); Total Protein 6.4 g/dL (6.3-8.2)
[2018-11-21 11:59] LABS: Glucose,Whole Blood 202 mg/dL (75-99)
[2018-11-21] MEDS: POTASSIUM CHLORIDE ER 20 MEQ TAB.ER PO SCH ×2 (11:59→13:02)
--- NOTE | 2018-11-21 14:20 | P.DS ---
Providers Date of admission: 11/18/18 12:05 Expected date of discharge: 11/21/18 Attending physician: Umu Vela Consults: 11/18/18 16:49 Consult Physician Routine Consulting Provider: Irineo Washburn Consult Reason/Comments: neuro changes per family pt not as alert as normal Do you want consulting provider notified?: Yes 11/19/18 12:59 Consult Physician Routine Consulting Provider: Isma Amor Consult Reason/Comments: Vomiting/EGD Do you want consulting provider notified?: Yes Primary care physician: Floyd Kensington Hospital Course: This is a 73-year-old male one of Dr. Armando with a previous medical history significant for diabetes mellitus type 1 insulin requiring, history of diabetic polyneuropathy, psoriasis, history of spondylosis of the cervical sp ine, patient presented to the emergency department at [facility] today after 4 day history of increased abdominal pain associated with nausea and vomiting and not able to keep anything down, patient to the was found to have an elevated blood glucose level with hypernatremia and he was quite dehydrated he was started on insulin drip as well as IV fluid resuscitation was admitted to the hospital for evaluation, patient was seen in consultation by neurology for evaluation of mental status changes and encephalopathy that got better with IV hydration and IV insulin and he was recommended for the patient to go for MRI of the brain with and without gadolinium despite the low probability of CVA. Patient will have abdominal x-ray to rule out any ileus. 11/19: Patient is not able to eat anything and he continues to have significant nausea and vomiting with even ice chips, I spoke with his daughter at the bedside and she stated that he had lost quite a bit of weight and he has been having some issues with dysphagia as well he denies any heartburn, he denies any blood in the stool or black stool, abdominal x-ray did not show any evidence of acute abnormalities his abdomen is quite soft nonsurgical, we'll consult GI for possible EGD and increased Reglan 10 mg IV push every 6 hours [id number], patient also may need to have a gastric emptying study as well, if the EGD is negative patient will go for computed tomography scan of the abdomen and pelvis with contrast tomorrow morning. 11/20: MRI of the brain revealed age-related atrophy and probable chronic small vessel ischemic change. No evidence of subacute ischemia. Neurology's sign off this case. The patient was seen this morning by GI with plan for EGD this afternoon. His nausea and vomiting have resolved. Patient denies any abdominal pain or tenderness. A daughter is at the bedside questions have been answered. 11/21: Patient is [facility] on the [facility] floor. He has been seen by GI and diet advanced to soft bland. EGD performed yesterday revealed moderate gastritis antrum and body, biopsied. Mild one night's, biopsied. Pathology reports are pending. Patient is anxious to be discharged home. Patient is ordered for the soft bland diet for lunch and if he tolerates this, patient will be discharged home today. Prescription for Reglan 10 day course will be supplied and patient to follow-up with Dr. Armando for additional prescriptions. Patient to also continue Protonix. Patient will be discharged home today in stable condition. Discharge diagnoses: 1. Diabetic ketoacidosis. 2. Intractable nausea and vomiting in part due to diabetic acidosis 3. Leukocytosis likely related to dehydration. 4. Diabetes mellitus type 2 insulin requiring. 5. Psoriasis. Stable. 6. 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 Stable. 7. Anion gap metabolic acidosis due to DKA. 8. Metabolic encephalopathy secondary to DKA. Discharge plan: Home Impression and plan of care have been directed as dictated by the signing physician. Mercy Dugan nurse practitioner acting as scribe for signing physician. Patient Condition at Discharge: Good Plan - Discharge Summary Discharge Rx Participant: No New Discharge Prescriptions: New Pantoprazole [Protonix] 40 mg PO AC-BRKFST #30 tablet. Metoclopramide [Reglan] 10 mg PO ACHS #40 tab Continue Insulin Glulisine [Apidra Solostar] 7 unit SQ AC-SUPPER Insulin Glulisine [Apidra Solostar] 4 unit SQ AC-LUNCH Insulin Glulisine [Apidra Solostar] See Protocol SQ AC-BRKFST Insulin Glargine,Hum.rec.anlog [Toujeo Solostar] 17 units SQ DAILY Discharge Medication List Insulin Glargine,Hum.rec.anlog [Toujeo Solostar] 17 units SQ DAILY 11/18/18 [History] Insulin Glulisine [Apidra Solostar] 4 unit SQ AC-LUNCH 11/18/18 [History] Insulin Glulisine [Apidra Solostar] 7 unit SQ AC-SUPPER 11/18/18 [History] Insulin Glulisine [Apidra Solostar] See Protocol SQ AC-BRKFST 11/18/18 [History] Metoclopramide [Reglan] 10 mg PO ACHS #40 tab 11/21/18 [Rx] Pantoprazole [Protonix] 40 mg PO AC-BRKFST #30 tablet. 11/21/18 [Rx] Follow up Appointment(s)/Referral(s): Floyd Armando MD [Primary Care Provider] - 1 Week (office closed, please call f or appt) Patient Instructions/Handouts: Diabetic Ketoacidosis (DC), Upper Endoscopy (DC) Discharge Disposition: HOME SELF-CARE
== END 2018-11-21 13:54 | disposition home or self-care (01) | DRG 637 ==
LOC: EC 09:30 → 3SCARD 12:05 → 4MS4W 11-20 22:20
PROVIDERS: ADMIT Internal Medicine; ATTEND Internal Medicine
PROC: 0DB78ZX Excision of Stomach, Pylorus, Via Natural or Artificial Opening Endoscopic, Diagnostic (ICD-10-PCS; 2018-11-20)
PROC: 0DB98ZX Excision of Duodenum, Via Natural or Artificial Opening Endoscopic, Diagnostic (ICD-10-PCS; principal; 2018-11-20 08:25)
DX: E10.10 Type 1 diabetes mellitus with ketoacidosis without coma (principal); G93.41 Metabolic encephalopathy; E87.0 Hyperosmolality and hypernatremia; Z79.4 Long term (current) use of insulin; E10.42 Type 1 diabetes mellitus with diabetic polyneuropathy; D72.829 Elevated white blood cell count, unspecified; E86.0 Dehydration; J44.9 Chronic obstructive pulmonary disease, unspecified; K29.70 Gastritis, unspecified, without bleeding; K29.80 Duodenitis without bleeding; L40.9 Psoriasis, unspecified; M47.812 Spondylosis without myelopathy or radiculopathy, cervical region; M47.816 Spondylosis without myelopathy or radiculopathy, lumbar region; R13.10 Dysphagia, unspecified; Z82.49 Family history of ischemic heart disease and other diseases of the circulatory system; Z87.891 Personal history of nicotine dependence; Z98.42 Cataract extraction status, left eye; Z98.41 Cataract extraction status, right eye; Z96.1 Presence of intraocular lens; Z83.6 Family history of other diseases of the respiratory system; M15.9 Polyosteoarthritis, unspecified
CPT/HCPCS: 36415; 43239; 70551; 71046; 74019; 80048; 80051; 80053; 81003; 82009; 82330; 82565; 82607; 82947; 83690; 83735; 84100; 84443; 84520; 85025; 88305; 96361; 96374; 99285

== ENCOUNTER → 2021-11-30 | Outpatient (CLI) | payer MEDICARE ==
--- NOTE | 2021-11-30 15:28 | XR ---
EXAMINATION TYPE: XR chest 2V DATE OF EXAM: 11/30/2021 COMPARISON: 11/18/2018 INDICATION: Psoriasis vulgaris TECHNIQUE: Frontal and lateral views of the chest are obtained. FINDINGS: The heart size is normal. The pulmonary vasculature is normal. The lungs are clear. Some flattening of the diaphragms. Consider some emphysematous change IMPRESSION: 1. No acute pulmonary process. Consider COPD.
== END | disposition home or self-care (01) ==
LOC: RADXRMAIN 14:52
PROVIDERS: ATTEND Dermatology MOHS-Micrographic Surgery
DX: L40.0 Psoriasis vulgaris (principal)
CPT/HCPCS: 71046

== ENCOUNTER → 2022-01-25 | Day surgery (SDC) | payer MEDICARE ==
[~2022-01-25] MED LIST: INSULIN ASPART (NovoLOG) 100 UNIT/ML VIAL SQ ONE
[2022-01-25 08:17] VITALS: BP 188/78; PULSE 64; RESP 16; TEMP 96.3
[2022-01-25 08:21] LABS: Glucose,Whole Blood 247 mg/dL (70-110)
--- NOTE | 2022-01-26 19:57 | PCN ---
PROCEDURE NOTE REQUESTING PHYSICIAN: Dr. Sarahi Casillas. INDICATIONS FOR PROCEDURE: The patient is a 76-year-old white male, who is presently being evaluated for dysphagia to solids and liquids for the last several months duration. He recently had an upper endoscopy done on December 26 of this year, that revealed corkscrew appearance of the esophagus suspicious for esophageal dysmotility. There was no esophageal stricture identified. The patient is, hence, scheduled for esophageal manometry to evaluate further. PROCEDURE PERFORMED: High-resolution impedance esophageal manometry. PREOPERATIVE DIAGNOSES: Dysphagia to solids and liquids of several months duration and abnormal esophagogastroduodenoscopy revealing corkscrew appearance of esophagus. Rule out esophageal dysmotility. DESCRIPTION OF PROCEDURE: After informed consent was obtained from the patient, he was brought into the endoscopy unit. The esophageal manometry catheter was passed from the external nostril and was gently advanced into the esophagus and stomach, and the study was performed using wet and viscous swallows. The study was interpreted using [place] classification. Following are the study results: 1. Lower esophageal sphincter data: Mean IRP is 172 mmHg. 2. Lower esophageal body: Mean DCI is 658 mmHg.s.cm. 3. Peristaltic contractions were 0. 4. Complete transit time with liquids 10%. Complete transit with viscous 20%. On review of the swallow, there is evidence of intermittent episodes of panesophageal pressurization consistent with type 1 achalasia. INTERPRETATION: The above esophageal manometry revealed increased integral residual pressures of the lower esophageal sphincter with no peristalsis in the esophageal body and evidence of panesophageal pressurization consistent with esophageal achalasia. RECOMMENDATIONS: The patient was advised to follow up in the office in 2 weeks to discuss further management. MMODL / IJN: [id number] /
== END ==
LOC: ORWHC2ENDO 08:02
PROVIDERS: ATTEND Internal Medicine Gastroenterology
DX: K22.4 Dyskinesia of esophagus (principal)
CPT/HCPCS: 91038